=== PATIENT | male | born 1980 | race Two or more races ===

== ENCOUNTER 2020-08-13 13:51 | Emergency (ER) | payer SELFPAY ==
[2020-08-13 14:06] VITALS: BP 121/73; PULSE 85; RESP 16; TEMP 37.1; O2SAT 97; BMI 24.3
--- NOTE | 2020-08-13 15:00 | ED.SKABFB ---
HPI - Skin/Abscess/Foreign Bdy General Chief complaint: Skin/Abscess/Foreign Body Stated complaint: SKIN INFECTION Time Seen by Provider: 08/13/20 14:49 Source: patient Mode of arrival: ambulatory History of Present Illness HPI narrative: 39-year-old male with past medical history of IVDA presenting to the ED complaining of bilateral AC abscesses/infection x2 days s/p IV drug abuse. Reports left arm with redness worsening today, attempted to drain yesterday with some pus drainage expressed. Denies fever, chills, injury to other area MD complaint: abscess/boil Related Data Previous Rx's Medication Instructions Recorded cephalexin 500 mg PO QID 7 Days #28 cap 08/13/20 doxycycline hyclate 100 mg PO BID 7 Days #14 cap 08/13/20 Allergies Allergy/AdvReac Type Severity Reaction Status Date / Time No Known Allergies Allergy Verified 08/13/20 14:09 Review of Systems Review of Systems: Constitutional: No Fever, No Chills Musculoskeletal: No joint pain, No Myalgias, No Joint Swelling Skin: +abscess, +erythema, +swelling Neuro: No Numbness, No Paresthesias Yes all other systems are reviewed and are negative [facility] Past Medical History Attestation statement: The following information was validated with the patient. Medical History (Updated 08/13/20 @ 16:15 by NICOLASA Hernández) Drug abuse Social History Social History Advance Directives: No Advance Directives Information Provided: No Physical Exam Vital Signs: Vital Signs: Last Vital Signs Temp 98.7 F 08/13/20 14:06 Pulse 85 08/13/20 14:06 Resp 16 08/13/20 14:06 BP 121/73 08/13/20 14:06 Pulse Ox 97 08/13/20 14:06 Body Mass Index 24.3 Const: General: cooperative and healthy appearing Orientation/consciousness: patient oriented x3 Limitations: no limitations HENMT: Head: Yes normal to inspection Ears: hearing grossly normal bilaterally General nose exam: Normal external nose present Face and sinus: Yes normal facial exam Eyes: General: appearance normal, both eyes and all related structures EOM: EOMs intact bilaterally Neck: Neck: Yes normal visual inspection Resp: Effort & Inspection: normal respiratory effort Cardio: Rate: regular rate Peripheral pulses: dorsalis pedis present Skin: Other: +large hard indurated abscess noted to left AC with surrounding erythema/cellulitis and warmth extending to wrist. Not circumferential. No crepitus. No fluctuance. No proximal streaking Right AC with small hard indurated abscess. No surrounding cellulitis/erythema, warmth, or fluctuance Neuro: General: patient oriented x3 Gait exam (Neuro): Normal gait present Course Course Course Narrative: -no leukocytosis. Lactic negative. Labs otherwise unremarkable Worrisome signs and symptoms and strict return precautions discussed with patient. He verbalized understanding of feel safe for discharge home to be re-evaluated in 2 days MDM - Skin/Abscess/Foreign Bdy MDM Narrative Medical decision making narrative: 39-year-old male with past medical history of IVDA presenting to the ED complaining of bilateral AC abscesses/infection x2 days s/p IV drug abuse. On exam VSS, NAD/well-appearing, physical exam as above. Concern for bilateral indurated abscesses w/ cellulitis on LUE. Low concern for severe sepsis at this time. No I&D indicated at this time. Plan: Labs, 1st dose of p.o. Doxycycline and Keflex given in the ED. Differential Diagnosis Differential diagnosis: Likely abscess of skin or subcutaneous tissue and cellulitis Medical Records Attestation: I reviewed the patient's medical records. Lab Data Attestation: I reviewed the patient's lab results. Result diagrams: 08/13/20 15:15 08/13/20 15:15 Labs: Lab Results 08/13/20 08/13/20 08/13/20 Range/Units 15:15 15:15 15:15 WBC 10.1 (4.8-10.8) X10*3/uL RBC 3.88 L (4.60-5.80) X10*6/uL Hgb 11.0 L (14.0-18.0) g/dl Hct 33.6 L (42-52) % MCV 86.6 (80-98) fL MCH 28.4 (27.0-33.0) pg MCHC 32.7 (31.0-36.0) g/dl RDW 12.9 (11.0-16.0) % Plt Count 304 (160-400) X10*3/uL MPV 8.9 L (9.4-12.4) fL Immature Gran % (Auto) 0.2 (0.0-0.4) % Neut % (Auto) 64.9 (45-73) % Lymph % (Auto) 23.9 (20-40) % [place] % (Auto) 8.5 (2-11) % Eos % (Auto) 2.1 (0-4) % Baso % (Auto) 0.4 (0-2) % Lymph # (Auto) 2.4 (1.2-4.9) X10*3/uL [place] # (Auto) 0.9 (0.1-1.2) X10*3/uL Eos # (Auto) 0.2 (0.0-0.4) X10*3/uL Baso # (Auto) 0.0 (0.0-0.2) X10*3/uL Abs Immat Gran (auto) 0.02 (0.00-0.03) X10*3/uL Absolute Neuts (auto) 6.6 (2.0-8.3) X10*3/uL Absolute Nucleated RBC 0.000 (0.0-0.012) X10*3/uL Nucleated RBC % (auto) 0.0 (0.0-0.2) /100WBC Sodium 136 (135-145) mmol/L Potassium 3.6 (3.3-5.1) mmol/L Chloride 100 (96-108) mmol/L Carbon Dioxide 26 (22-29) mmol/L Anion Gap 14 (12-20) BUN 13 (9-16) mg/dL Creatinine 0.78 (0.5-1.4) mg/dL Estim Creat Clear Calc 120.5 Estimated GFR > 60 Random Glucose 94 (60-115) mg/dL Lactic Acid 0.5 (0.5-2.0) mmol/L Calcium 8.6 (8.4-10.2) mg/dL Discharge Plan Discharge Clinical Impression: Abscess Cellulitis Qualifiers: Site of cellulitis: extremity Site of cellulitis of extremity: upper extremity Laterality: left Qualified Code(s): L03.114 - Cellulitis of left upper limb Patient Disposition: Home, Self-Care Instructions: Abscess (ED), Cellulitis (ED) Additional Instructions: Your blood work was reassuring today in the ED. You have a very infected in arm from your drug abuse. Keflex and doxycycline are antibiotics, take as prescribed If area is worsening, becoming more swollen, more red, you develop any fever return to the ED immediately You should be re-evaluated in 2 days It areas becomes soft, come to a tamez, or have any drainage return to the ED for proper drainage Prescriptions: New doxycycline hyclate 100 mg capsule 100 mg PO BID 7 Days Qty: 14 RF: 0 cephalexin 500 mg capsule 500 mg PO QID 7 Days Qty: 28 RF: 0 Referrals: Physician,Unknown [Primary Care Provider] - 2 days
[2020-08-13] MEDS: cephALEXin 500 MG CAPSULE PO (15:05)
[2020-08-13 15:24] LABS: MANUAL DIFF FLAG NO
[2020-08-13 15:27] LABS: Basophils Percent Auto 0.4 % (0-2); Eosinophils Absolute Auto 0.2 X10*3/uL (0.0-0.4); Eosinophils Percent Auto 2.1 % (0-4); Hematocrit 33.6 % (42-52); Imm Gran Abs Auto 0.02 X10*3/uL (0.00-0.03); Imm Gran Pct Auto 0.2 % (0.0-0.4); Lymphocytes Absolute Auto 2.4 X10*3/uL (1.2-4.9); Lymphocytes Percent Auto 23.9 % (20-40); Mean Corpuscular HGB Conc 32.7 g/dl (31.0-36.0); Mean Corpuscular Hemoglobin 28.4 pg (27.0-33.0); Mean Corpuscular Volume 86.6 fL (80-98); Mean Platelet Volume 8.9 fL (9.4-12.4); Monocytes Absolute Auto 0.9 X10*3/uL (0.1-1.2); Monocytes Percent Auto 8.5 % (2-11); Neutrophils Absolute Auto 6.6 X10*3/uL (2.0-8.3); Neutrophils Percent Auto 64.9 % (45-73); Platelet Count 304 X10*3/uL (160-400); Red Blood Count 3.88 X10*6/uL (4.60-5.80); Red Cell Distribution Width 12.9 % (11.0-16.0); White Blood Count 10.1 X10*3/uL (4.8-10.8)
[2020-08-13 15:45] LABS: Lactic Acid 0.5 mmol/L (0.5-2.0)
[2020-08-13 15:48] LABS: Anion Gap 14 (12-20); Blood Urea Nitrogen 13 mg/dL (9-16); Calcium 8.6 mg/dL (8.4-10.2); Carbon Dioxide 26 mmol/L (22-29); Chloride 100 mmol/L (96-108); Creatinine Clr Calc Pharmacy 120.5; Estimated Glomerular Filt Rate > 60; Glucose Random 94 mg/dL (60-115); Potassium 3.6 mmol/L (3.3-5.1); Sodium 136 mmol/L (135-145)
== END 2020-08-13 16:24 | disposition home or self-care (01) ==
PROVIDERS: Physician Assistant; Emergency Provider Emergency Medicine
DX: L02.414 Cutaneous abscess of left upper limb (principal); L03.114 Cellulitis of left upper limb; F19.10 Other psychoactive substance abuse, uncomplicated
CPT/HCPCS: 36415; 80048; 83605; 85025; 87040; 99283

== ENCOUNTER 2020-10-31 11:04 | Emergency (ER) | payer MEDICAID, SELFPAY ==
--- NOTE | ~2020-10-31 | XR_ITS ---
EXAMINATION: XR HAND, RIGHT CLINICAL INFORMATION: Redness. Congestion osteomyelitis of the thumb COMPARISON: None TECHNIQUE: PA, lateral, and oblique views of the right hand. FINDINGS: The bones and soft tissues are normal. No fracture. Alignment is anatomic. Joint spaces are maintained. No erosions or soft tissue calcifications. XR/XR hand RT 2V IMPRESSION: Normal right hand.
[2020-10-31 11:28] VITALS: BP 138/80; PULSE 72; RESP 17; TEMP 36.8; O2SAT 97; BMI 23.6
--- NOTE | 2020-10-31 12:10 | ED_ITS ---
HPI - Extremity Problem General Chief complaint: Extremity Injury, Upper Stated complaint: thumb injury Time Seen by Provider: 10/31/20 11:39 Source: patient Mode of arrival: ambulatory Limitations: no limitations History of Present Illness HPI Narrative: Patient presents to ED for right thumb pain patient states he was cutting near the cuticle days ago and now finger swollen, red, and painful. Patient denies any blunt trauma to the thumb. Patient denies IV drug use throughout the finger. Related Data Previous Rx's Medication Instructions Recorded cephalexin 500 mg PO QID 7 Days #28 cap 08/13/20 doxycycline hyclate 100 mg PO BID 7 Days #14 cap 08/13/20 cephalexin 500 mg PO Q6H 7 Days #28 cap 10/31/20 doxycycline hyclate 100 mg PO BID #14 tab 10/31/20 naproxen 500 mg PO BID PRN #20 tab 10/31/20 Allergies Allergy/AdvReac Type Severity Reaction Status Date / Time No Known Allergies Allergy Verified 08/13/20 14:09 Review of Systems Review of Systems: Yes all other systems are reviewed and are negative Constitutional: Constitutional: Reports as per HPI and Reports no additional constitutional complaints Eyes: Eyes: Reports as per HPI and Reports no additional eye complaints ENT: Reports system reviewed and no additional complaints, except as documented and Reports as per HPI Cardiovascular: Cardiovascular: Reports as per HPI and Reports no additional cardiovascular complaints Respiratory: Respiratory: Reports as per HPI and Reports no additional respiratory complaints Gastrointestinal: Gastrointestinal: Reports as per HPI and Reports no additional gastrointestinal complaints Genitourinary: Genitourinary: Reports no additional male genitourinary complaints and Reports as per HPI Musculoskeletal: Musculoskeletal: Reports no additional musculoskeletal complaints, Reports as per HPI and Reports arthralgias Comments: Right thumb redness Neurologic: Reports system reviewed and no additional complaints, except as documented and Reports as per HPI Psychiatric: Psychiatric: Reports no additional psychiatric complaints and Reports as per HPI [facility] Past Medical History Medical History (Updated 10/31/20 @ 13:24 by NICOLASA Reyes) Drug abuse Social History Social History Advance Directives: No Advance Directives Information Provided: Yes Physical Exam Vital Signs: Vital Signs: Last Vital Signs Temp 98.2 F 10/31/20 11:28 Pulse 90 10/31/20 13:28 Resp 18 10/31/20 13:28 BP 122/74 10/31/20 13:28 Pulse Ox 98 10/31/20 13:28 Body Mass Index 23.6 Const: General: cooperative, healthy appearing, comfortable, no acute distress, well developed and alert; No awake Orientation/consciousness: patient oriented x3 HENMT: Head: Yes normal to inspection, Yes No palpable skull fracture present, Yes normocephalic, Yes atraumatic and No abrasion Eyes: General: appearance normal, both eyes and all related structures Neck: Neck: Yes normal visual inspection, Yes full ROM, Yes no lymphadenopathy, Yes no meningeal signs, Yes trachea midline, Yes supple and No tender Chest: Chest palpation & inspection: normal inspection of the chest and normal palpation of entire chest wall Resp: Effort & Inspection: normal respiratory effort and able to speak in complete sentences Cardio: Jugular venous distension: no JVD Heart sounds: S1 normal heart sound present and S2 normal heart sound present GI: Inspection: Yes normal to inspection and No abdominal wall ecchymosis Palpation (GI): Soft to palpation, not firm, nontender, no guarding and not rigid : General: No CVA tenderness and Yes no CVA tenderness Back/Spine/Pelvis: Back: no CVA tenderness, No CVA tenderness and No back tenderness Skin: Other: Right thumb cellulitis General skin exam: no rashes or lesions noted and elasticity normal Neuro: General: patient oriented x3, no meningeal signs and CN's II-XI intact bilaterally Cranial nerves: Yes CN's II-XII intact bilaterally Extrem: Hand/finger images: 1. Redness swelling on skin below nail dorsal aspect from with green fluctuance may be early paronychia. Cellulitis versus parynochia Psych: Appearance: grossly normal, well kempt and not disheveled Course Course Course Narrative: Will send patient x-ray to rule out osteomyelitis for Reevaluation(s) Reevaluation #1: Most likely will drain to see there is any pus from area of fluctuance possible paronychia. If the patient be discharged with Keflex and doxycycline. Reevaluation #2: X-ray negative for osteomyelitis. Digital block was done on right thumb with 1% lidocaine 6 mL was used. Wounds clean with sterile saline and Betadine. Size 15 blade was used to make incision on side of paronychia and there was yellow-green pus discharge. Wound culture was sent. Patient will be discharged with antibiotics. Patient up-to-date with tetanus MDM - Extremity (Nontraumatic) MDM Narrative Medical decision making narrative: Paronychia cellulitis Discharge Plan Discharge Clinical Impression: Paronychia, Cellulitis Patient Disposition: Home, Self-Care Instructions: Paronychia (ED), Cellulitis (ED) Additional Instructions: Return to the ED immediately for worsening redness, increased swelling, inabili ty to move finger, fever, chills, or any other concerning symptoms. Please follow-up with your PCP. Return to the ED in 2 days for wound re-evaluation Prescriptions: New cephalexin 500 mg capsule 500 mg PO Q6H 7 Days Qty: 28 RF: 0 doxycycline hyclate 100 mg tablet 100 mg PO BID Qty: 14 RF: 0 naproxen 500 mg tablet 500 mg PO BID PRN (Reason: pain) Qty: 20 RF: 0 No Action doxycycline hyclate 100 mg capsule 100 mg PO BID 7 Days Qty: 14 RF: 0 cephalexin 500 mg capsule 500 mg PO QID 7 Days Qty: 28 RF: 0 Interventions: ED Discharge Assessment Last Done: 10/31/20 13:30 Discharge Date/Time: 10/31/20 13:32 Print Language: Sami
[2020-10-31] MEDS: Lidocaine HCl 1 % MPF 5 ML VIAL INFILTRATI (12:15)
[2020-10-31] MEDS: Lidocaine HCl 1 % MPF 5 ML VIAL EPIDURAL (12:15)
[2020-10-31 13:28] VITALS: BP 122/74; PULSE 90; RESP 18; O2SAT 98
== END 2020-10-31 13:32 | disposition home or self-care (01) ==
PROVIDERS: Emergency Provider Emergency Medicine
DX: L03.011 Cellulitis of right finger (principal); M79.644 Pain in right finger(s)
CPT/HCPCS: 10060; 73120; 87071; 87077; 87186; 87205; 99283; 99284

== ENCOUNTER 2020-11-07 10:14 | Emergency (ER) | payer MEDICAID, SELFPAY ==
[2020-11-07 10:26] VITALS: BP 142/80; PULSE 56; RESP 18; TEMP 36.8; O2SAT 98; BMI 23.6
--- NOTE | 2020-11-07 10:37 | ED.OVERDOSE ---
HPI - Overdose General Chief Complaint: ETOH/Substance Use Stated Complaint: NARCOTIC USE Time Seen by Provider: 11/07/20 10:37 Source: patient and EMS Mode of arrival: EMS Limitations: no limitations History of Present Illness HPI Narrative: 40 y/o male with history of homelessness, IV heroin use presenting to the ER via EMS with lethargy after he was [place] unresponsive by bystanders [place] a [place]. Patient reports he was sleeping and apparently he could not be woken up. On EMS arrival he was aroused and not given Narcan. He states his last use of heroin was a day or two ago. He denies use today. He has a history of overdose in the past. He has been on Suboxone in the past. He wants to get clean. He is depressed but denies SI. Denies intentional OD. Wants to be left alone. complaint: accidental overdose Intent: unwilling to say Associated symptoms: depression Treatments Prior to Arrival: none Related Data Previous Rx's Medication Instructions Recorded cephalexin 500 mg PO QID 7 Days #28 cap 08/13/20 doxycycline hyclate 100 mg PO BID 7 Days #14 cap 08/13/20 cephalexin 500 mg PO Q6H 7 Days #28 cap 10/31/20 doxycycline hyclate 100 mg PO BID #14 tab 10/31/20 naproxen 500 mg PO BID PRN #20 tab 10/31/20 Allergies Allergy/AdvReac Type Severity Reaction Status Date / Time No Known Allergies Allergy Verified 08/13/20 14:09 Review of Systems Review of Systems: Constitutional: No Fever, No Chills Cardiovascular: No Chest Pain, No SOB, No Respiratory: No Cough, No Sputum Gastrointestinal: No Nausea, No Vomiting, No Diarrhea, No abdominal Pain Skin: +Skin Lesions, No rash Neuro: No Weakness, No Numbness, No Dizziness, No Headache Psych: No Anxiety/Panic, + Depression, No SI Heme/Lymph: No Bruising PMFSH Past Medical History Attestation statement: The following information was validated with the patient. Medical History Drug abuse Social History Social History Advance Directives: No Advance Directives Information Provided: No Physical Exam Vital Signs: Vital Signs: Last Vital Signs Temp 98.2 F 11/07/20 10:26 Pulse 56 11/07/20 10:26 Resp 18 11/07/20 10:26 BP 142/80 H 11/07/20 10:26 Pulse Ox 98 11/07/20 10:26 Body Mass Index 23.6 Appearance: middle aged male sleeping on the stretcher. No acute distress. HEENT: normal inspection CVS: Normal heart rate and rhythm. Pulses normal. Respiratory: No respiratory distress. RR normal. CTAB. Skin: Skin warm and dry. Normal skin color. Normal skin turgor. No rashes. Extremities: upper extremities with multiple track stone, scabbing, no erythema or tenderness, no abscesses. Neuro/psych: Lethargic but easily arouses to voice. Oriented X 3. Answers all questions appropriately, flat affect. Course Course Course Narrative: 40 y/o female with history of IVDA presenting with lethargy. Probable substance abuse related although he denies. Did NOT require Narcan and is appropriate on arrival. He is wanting detox and rehab. He is not exhibiting any symptoms of withdrawal at this time. Will monitor closely. strength and conditioning coach to see. Reevaluation(s) Reevaluation #1: Patient is requesting detox - facility in [place] has been called. Labs and EKG ordered (cocaine use), hopeful for placement today. Reevaluation #2: WBC 12.3. Afebrile without signs of systemic infection. Sodium 146 with BUN/Cr 23/0.75, Ca++ 10.4. Likely slightly dehydrated. Tolerating PO and PO fluids are being encouraged. Awaiting UA and Utox. Reevaluation #3: Patient is currently doing intake for [facility]. Stable for d/c to rehab for detox. MDM - Overdose Lab Data Attestation: I reviewed the patient's lab results. Result diagrams: 11/07/20 11:54 11/07/20 11:54 Labs: Lab Results 11/07/20 11/07/20 11/07/20 Range/Units 11:54 11:54 11:54 WBC 12.3 H (4.8-10.8) X10*3/uL RBC 5.56 D (4.60-5.80) X10*6/uL Hgb 15.7 D (14.0-18.0) g/dl Hct 47.6 D (42-52) % MCV 85.6 (80-98) fL MCH 28.2 (27.0-33.0) pg MCHC 33.0 (31.0-36.0) g/dl RDW 13.2 (11.0-16.0) % Plt Count 407 H D (160-400) X10*3/uL MPV 8.7 L (9.4-12.4) fL Immature Gran % (Auto) 0.3 (0.0-0.4) % Neut % (Auto) 84.6 H (45-73) % Lymph % (Auto) 10.0 L (20-40) % [place] % (Auto) 4.9 (2-11) % Eos % (Auto) 0.0 (0-4) % Baso % (Auto) 0.2 (0-2) % Lymph # (Auto) 1.2 (1.2-4.9) X10*3/uL [place] # (Auto) 0.6 (0.1-1.2) X10*3/uL Eos # (Auto) 0.0 (0.0-0.4) X10*3/uL Baso # (Auto) 0.0 (0.0-0.2) X10*3/uL Abs Immat Gran (auto) 0.04 H (0.00-0.03) X10*3/uL Absolute Neuts (auto) 10.4 H (2.0-8.3) X10*3/uL Absolute Nucleated RBC 0.000 (0.0-0.012) X10*3/uL Nucleated RBC % (auto) 0.0 (0.0-0.2) /100WBC Sodium 146 H (135-145) mmol/L Potassium 3.4 (3.3-5.1) mmol/L Chloride 104 (96-108) mmol/L Carbon Dioxide 28 (22-29) mmol/L Anion Gap 17 (12-20) BUN 23 H D (9-16) mg/dL Creatinine 0.75 (0.5-1.4) mg/dL Estim Creat Clear Calc 128.3 Estimated GFR > 60 Random Glucose 93 (60-115) mg/dL Calcium 10.4 H D (8.4-10.2) mg/dL Magnesium 2.5 (1.6-2.6) mg/dL Total Bilirubin 0.8 (0.0-1.0) mg/dL Direct Bilirubin 0.4 (0.0-0.5) mg/dL AST 17 (5-37) U/L ALT 13 (0-40) U/L Alkaline Phosphatase 91 (39-117) U/L Total Protein 8.7 H (6.5-8.0) g/dL Albumin 4.5 (3.5-5.0) g/dL Ethyl Alcohol < 10 mg/dL ECG Data Attestation: I personally reviewed and interpreted this ECG as follows: ECG interpretation date: 11/07/20 ECG interpretation time: 14:52 Interpretation: sinus rhythm, HR 63 bpm, normal W[place] interval, normal QTC, artifact present. No ST segment or elevations Critical Care Time Critical Care Time Critical Care Time: No Discharge Plan Discharge Clinical Impression: Heroin addiction Patient Disposition: Xfer to Respite Facility Transfer Details: [facility] Instructions: Opioid Use Disorder (ED) Additional Instructions: DO NOT USE HEROIN - IT CAN KILL YOU Go right to detox from the ER Prescriptions: No Action cephalexin 500 mg capsule 500 mg PO Q6H 7 Days Qty: 28 RF: 0 doxycycline hyclate 100 mg tablet 100 mg PO BID Qty: 14 RF: 0 naproxen 500 mg tablet 500 mg PO BID PRN (Reason: pain) Qty: 20 RF: 0 doxycycline hyclate 100 mg capsule 100 mg PO BID 7 Days Qty: 14 RF: 0 cephalexin 500 mg capsule 500 mg PO QID 7 Days Qty: 28 RF: 0
--- NOTE | 2020-11-07 10:53 | ECG_ITS ---
Test Reason : ETOH Blood Pressure : / mmHG Vent. Rate : 063 BPM Atrial Rate : 063 BPM P-R Int : 130 ms QRS Dur : 080 ms QT Int : 456 ms P-R-T Axes : 080 079 086 degrees QTc Int : 466 ms Sinus rhythm with Premature supraventricular complexes Septal infarct , age undetermined Abnormal ECG No previous ECGs available Referred By: Lakeshia Galdamez Electronically Signed By:LILLIE BURDEN MD
[2020-11-07 11:59] LABS: MANUAL DIFF FLAG NO
[2020-11-07 12:02] LABS: Basophils Percent Auto 0.2 % (0-2); Hematocrit 47.6 % (42-52); Hemoglobin 15.7 g/dl (14.0-18.0); Imm Gran Abs Auto 0.04 X10*3/uL (0.00-0.03); Imm Gran Pct Auto 0.3 % (0.0-0.4); Lymphocytes Absolute Auto 1.2 X10*3/uL (1.2-4.9); Mean Corpuscular Hemoglobin 28.2 pg (27.0-33.0); Mean Corpuscular Volume 85.6 fL (80-98); Mean Platelet Volume 8.7 fL (9.4-12.4); Monocytes Absolute Auto 0.6 X10*3/uL (0.1-1.2); Monocytes Percent Auto 4.9 % (2-11); Neutrophils Absolute Auto 10.4 X10*3/uL (2.0-8.3); Neutrophils Percent Auto 84.6 % (45-73); Platelet Count 407 X10*3/uL (160-400); Red Blood Count 5.56 X10*6/uL (4.60-5.80); Red Cell Distribution Width 13.2 % (11.0-16.0); White Blood Count 12.3 X10*3/uL (4.8-10.8)
[2020-11-07 12:39] LABS: Alanine Aminotransferase 13 U/L (0-40); Albumin Level 4.5 g/dL (3.5-5.0); Alkaline Phosphatase 91 U/L (39-117); Anion Gap 17 (12-20); Aspartate Amino Transferase 17 U/L (5-37); Bilirubin Direct 0.4 mg/dL (0.0-0.5); Bilirubin Total 0.8 mg/dL (0.0-1.0); Blood Urea Nitrogen 23 mg/dL (9-16); Calcium 10.4 mg/dL (8.4-10.2); Carbon Dioxide 28 mmol/L (22-29); Chloride 104 mmol/L (96-108); Creatinine Clr Calc Pharmacy 128.3; Estimated Glomerular Filt Rate > 60; Ethanol < 10 mg/dL; Glucose Random 93 mg/dL (60-115); Magnesium 2.5 mg/dL (1.6-2.6); Potassium 3.4 mmol/L (3.3-5.1); Sodium 146 mmol/L (135-145); Total Protein 8.7 g/dL (6.5-8.0)
--- NOTE | 2020-11-07 14:34 | MHC.RECOVSUP ---
Recovery Support note: Patient is a 40 year old Egyptian speaking male who presented to [facility] seeking detox, reporting recent heroin use. Patient does not have health insurance. Patient was referred to [facility] however they are now reporting that they do not have a male bed. This web content writer will continue the bedsearch for patient.
--- NOTE | 2020-11-07 16:11 | PC.NURSE ---
assumed care of pt. pt sleeping, wakes to voice. respirations easy, n/l. skin w/d. will continue to monitor pt. Pt in NAD at this time.
--- NOTE | 2020-11-07 17:43 | PC.NURSE ---
PT TO WR AWAITING FOR [facility] RECOVERY TO ANSWER PHONE. BELONGINGS TO PT. PT AMBULATES WITH STEADY, EVEN GAIT TO WR. PT LEFT ED IN NAD.
== END 2020-11-07 17:46 ==
PROVIDERS: Physician Assistant; Emergency Provider Emergency Medicine
DX: T40.1X1A Poisoning by heroin, accidental (unintentional), initial encounter (principal); Y92.9 Unspecified place or not applicable; F11.10 Opioid abuse, uncomplicated; Z71.51 Drug abuse counseling and surveillance of drug abuser
CPT/HCPCS: 36415; 80048; 80076; 80320; 83735; 85025; 93005; 99283

== ENCOUNTER 2021-10-26 23:25 | Emergency (ER) | payer OTHER, SELFPAY ==
--- NOTE | 2021-10-26 23:32 | ED_ITS ---
HPI - Alcohol General Chief Complaint: ETOH/Substance Use Stated Complaint: drug use Source: patient and EMS Mode of arrival: EMS Limitations: no limitations History of Present Illness HPI narrative: 41-year-old male presents via EMS for alcohol intoxication. Was found trying to get into somebody else's apartment. Patient stated that he was drunk and high and mistook the apartment door. MD complaint: alcohol intoxication Last drink: Just prior to admission Chronic alcohol use: Yes Previous visits for alcohol intoxication: Yes Recent trauma: No Associated symptoms: denies other symptoms Related Data Previous Rx's Medication Instructions Recorded cephalexin 500 mg capsule 500 mg PO QID 7 Days #28 cap 08/13/20 doxycycline hyclate 100 mg capsule 100 mg PO BID 7 Days #14 cap 08/13/20 cephalexin 500 mg capsule 500 mg PO Q6H 7 Days #28 cap 10/31/20 doxycycline hyclate 100 mg tablet 100 mg PO BID #14 tab 10/31/20 naproxen 500 mg tablet 500 mg PO BID PRN #20 tab 10/31/20 Allergies Allergy/AdvReac Type Severity Reaction Status Date / Time No Known Allergies Allergy Verified 08/13/20 14:09 Review of Systems Review of Systems: Constitutional: No Fever, No Chills ENT/Mouth: No sore throat, No Rhinorrhea Eyes: No Eye Pain, No Swelling, No Redness Cardiovascular: No Chest Pain, No SOB Respiratory: No Cough, No Sputum Gastrointestinal: No Nausea, No Vomiting, No Diarrhea, No abdominal Pain Genitourinary: No Dysuria, No Hematuria Musculoskeletal: No joint pain, No Myalgias, No Joint Swelling Skin: Multiple track stone, No Skin Lesions, No rash Neuro: No Weakness, No Numbness, No Loss of Consciousness, No Dizziness, No Headache Psych: Positive alcohol and heroin intoxication, No Anxiety, No Depression, No SI/HI/AH/VH Heme/Lymph: No Bruising, No Bleeding,No Lymphadenopathy Endocrine: No Polyuria, No Polydipsia Yes all other systems are reviewed and are negative [facility] Past Medical History Attestation statement: The following information was validated with the patient. Source: old records reviewed Medical History Drug abuse Social History Social History Alcohol intake: current Patient Tobacco Use Status: Never used Tobacco Use of substances other than those prescribed or required for medical reasons: Yes Substance Use Type: Heroin Substance Use Frequency: Chronic Longstanding Advance Directives: No Physical Exam ED Vital Signs: Vital Signs - 24 hr 10/26/21 23:37 10/26/21 23:42 Temperature 98.6 F 98.6 F Pulse Rate 110 H 110 H Respiratory Rate 15 18 Blood Pressure 123/56 L 123/56 L Pulse Oximetry 94 94 BMI result Body Mass Index 22.6 Appearance: Alert. Oriented X3. No acute distress. Eyes: Pupils equal, round and reactive to light. EOMI. No nystagmus. Sclerae nonicteric. ENT: Pharynx normal. Moist mucous membranes. Neck: Normal inspection. Neck supple. CVS: Normal heart rate and rhythm. Pulses normal. Respiratory: No respiratory distress. Breath sounds normal. Abdomen: Soft and nontender. Skin: Multiple fresh track stone. Skin warm and dry. Normal skin color. Normal skin turgor. Extremities: No lower extremity edema. Gait well-balanced well coordinated. Neuro: No motor deficit. No sensory deficit. Cranial nerves 2-12 intact. Course Course Course Narrative: 41-year-old male presents via EMS for alcohol and heroin use. Patient was found trying to get into an apartment that was not his, EMS states that he was not breaking and he just went to the wrong door. Patient is calm and cooperative. Answering questions politely and appropriately, alert oriented x4, vital signs are stable and within normal limits. Patient denies suicidal and homicidal ideation. Does not report any medical complaints. Does have some fresh track stone and wounds to his arms. Last tetanus vaccine unknown, will update today. Patient declines detox. Plan of care is to discharge home. Patient did not require Narcan. Patient verbalized understanding of and agrees to plan of care to discharge home. Verbalized understanding of signs and symptoms indicating need for emergent intervention MDM - Alcohol MDM Narrative Medical decision making narrative: Opioid use disorder Differential Diagnosis Differential diagnosis: Likely alcohol dependence Medical Records Attestation: I reviewed the patient's medical records. Discharge Plan Discharge Clinical Impression: Opioid use disorder, Alcohol use Patient Disposition: Home, Self-Care Instructions: Narcotic Use Disorder (ED), Opioid Use Disorder (ED) Additional Instructions: Please consider detox. We updated your Tdap vaccine today. Thank you for choosing this emergency department for evaluation. Please follow-up with primary care physician as needed. Return to the emergency department for any new, concerning, or worsening symptoms. Prescriptions: No Action cephalexin 500 mg capsule 500 mg PO Q6H 7 Days Qty: 28 0RF doxycycline hyclate 100 mg tablet 100 mg PO BID Qty: 14 0RF naproxen 500 mg tablet 500 mg PO BID PRN (Reason: pain) Qty: 20 0RF doxycycline hyclate 100 mg capsule 100 mg PO BID 7 Days Qty: 14 0RF cephalexin 500 mg capsule 500 mg PO QID 7 Days Qty: 28 0RF
[2021-10-26 23:36] VITALS: BP 148/80; PULSE 87
[2021-10-26 23:37] VITALS: BP 123/56; PULSE 110; RESP 15; TEMP 37; O2SAT 94; BMI 22.6
[2021-10-26 23:42] VITALS: BP 123/56; PULSE 110; RESP 18; TEMP 37; O2SAT 94
[2021-10-26] MEDS: Diphth,Pertus(ACell),Tet Adult 0.5 ML SYRINGE IM (23:51)
== END 2021-10-27 00:59 | disposition home or self-care (01) ==
LOC: HO.ED 23:47
PROVIDERS: Emergency Provider Internal Medicine
DX: S40.812A Abrasion of left upper arm, initial encounter (principal); S40.811A Abrasion of right upper arm, initial encounter; Y28.9XXA Contact with unspecified sharp object, undetermined intent, initial encounter; Y93.9 Activity, unspecified; Y92.9 Unspecified place or not applicable; Y99.9 Unspecified external cause status; F11.10 Opioid abuse, uncomplicated; F10.129 Alcohol abuse with intoxication, unspecified; Y90.9 Presence of alcohol in blood, level not specified; Z71.51 Drug abuse counseling and surveillance of drug abuser; Z79.899 Other long term (current) drug therapy
CPT/HCPCS: 90471; 90715; 99284

== ENCOUNTER 2023-04-10 06:14 | Emergency (ER) | payer OTHER, SELFPAY ==
[2023-04-10 06:18] VITALS: BP 113/54; PULSE 98; RESP 20; TEMP 36.6; O2SAT 96; BMI 24.4
--- NOTE | 2023-04-10 06:36 | ED_ITS ---
HPI - Psych General Chief Complaint: Psychiatric Symptoms Stated Complaint: Crisis Time Seen by Provider: 04/10/23 06:24 Source: patient Mode of arrival: ambulatory Limitations: no limitations History of Present Illness HPI Narrative: Patient is a 42-year-old male with history of drug and alcohol use, PTSD, depression, anxiety presenting to the emergency department complaining of suicidal and homicidal ideation after ?going on a sanchez.? Patient admits to using heroin and cocaine recently after being clean for 6 months. Patient initially reported thoughts of hurting himself and others to nursing on arrival. Patient now stating that he no longer feels this way and that he wishes to leave. Patient states that he just wants to get help with detox for his drug use. He is denying current SI, HI, auditory or visual hallucinations. Denies any physical complaints. MD complaint: suicidal ideation, homicidal ideation and substance abuse Onset (ago): hour(s) Duration: intermittent History of same: Yes Relieving factors: none Exacerbating factors: drug use Context: recent drug abuse Associated psychiatric symptoms: suicidal ideation and homicidal ideation Associated symptoms: denies other symptoms Treatments prior to arrival: none If self harm: admits thoughts of self harm Details of plan: denies plan Related Data Previous Rx's Medication Instructions Recorded cephalexin 500 mg capsule 500 mg PO QID 7 days #28 caps 08/13/20 doxycycline hyclate 100 mg capsule 100 mg PO BID 7 days #14 caps 08/13/20 cephalexin 500 mg capsule 500 mg PO Q6H 7 days #28 caps 10/31/20 doxycycline hyclate 100 mg tablet 100 mg PO BID #14 tabs 10/31/20 naproxen 500 mg tablet 500 mg PO BID PRN pain #20 tabs 10/31/20 Allergies Allergy/AdvReac Type Severity Reaction Status Date / Time No Known Allergies Allergy Verified 04/10/23 06:21 Review of Systems 2 Review of Systems: As per HPI. Yes all other systems are reviewed and are negative Constitutional: Constitutional: Reports as per HPI [facility] Past Medical History Medical History Drug abuse Social History Social History (System 03/16/22 @ 11:05 by Nelly Albert) Alcohol intake: current Patient Tobacco Use Status: Never used Tobacco Substance Use Type: Heroin Advance Directives: No Physical Exam 2 Vital Signs: Vital Signs: Last Vital Signs Temp 97.8 F 04/10/23 06:18 Pulse 98 04/10/23 06:18 Resp 20 04/10/23 06:18 BP 113/54 L 04/10/23 06:18 Pulse Ox 96 04/10/23 06:18 O2 Del Method Room Air 04/10/23 06:18 BMI result Body Mass Index 24.4 Vital signs have been reviewed and appear to be correct. Blood pressure normal. Heart rate normal. Respiratory rate normal. Temperature normal. Oxygen saturation normal. Const: General: cooperative, healthy appearing and no acute distress O rientation/consciousness: oriented to person, oriented to place, oriented to time and patient oriented x3 Limitations: no limitations HEENT: Head: Yes normocephalic and Yes atraumatic Ears: external ears normal General nose exam: Normal external nose present Face and sinus: Yes face symmetric Mouth: oropharynx normal and moist mucous membranes Throat: Yes uvula midline Eyes: Pupils: Equal, round and reactive pupils present Neck: Neck: Yes normal visual inspection and Yes supple Resp: Effort & Inspection: normal respiratory effort and able to speak in complete sentences Auscultation: clear to auscultation bilaterally Cardio: Rate: regular rate Rhythm: regular rhythm Heart sounds: S1 normal heart sound present and S2 normal heart sound present GI: Palpation (GI): Soft to palpation and nontender Auscultation: n ormoactive bowel sounds : General: Yes no CVA tenderness Back/Spine/Pelvis: Back: no CVA tenderness Skin: General skin exam: elasticity normal and turgor normal Neuro: General: oriented to person, oriented to place, oriented to time, patient oriented x3, moves all extremities, no focal motor deficits and CN's II- XI intact bilaterally Cranial nerves: Yes Equal, round and reactive pupils present Cognition (Neuro): normal cognition Extrem: General: Yes full ROM, Yes no pedal edema and Yes no calf tenderness Psych: Appearance: grossly normal Mental Status: mental status grossly normal Speech and movement: Normal speech and movement present Affect: n ormal affect Attitude: Guarded attititude/behavior present Thought process: Normal thought process present Thought content: Suicidality present (admitted to RN, currently denies), Homicidality present (admitted to RN, currently denies) and no hallucinations Insight: Limited insight present (Psych) Judgement: Limited judgement present (Psych) Course Reevaluation(s) Reevaluation #1: Evaluated by care team/susanter 18, currently there are no detox beds available. He is provided outpatient resources and encouraged to follow up with his doctor for detox bed. He is agreeable with this plan of care. Continues to deny SI/HI. He is calm and cooperative. Stable for discharge. Time: 16:31 Medications Administered Discontinued Medications Generic Name Dose Route Start Last Admin Trade Name Kimberly PRN Reason Stop Dose Admin Lorazepam 2 mg 04/10/23 07:05 04/10/23 07:32 Lorazepam 1 Mg Tablet PO 04/10/23 07:06 2 mg ONCE ONE Administration Medical Decision Making Medical Decision Making MDM Narrative: Patient is a 42-year-old male with history of drug and alcohol use, PTSD, depression, anxiety presenting to the emergency department complaining of suicidal and homicidal ideation after ?going on a sanchez.? On exam patient is awake, A+Ox3, VS WNL, afebrile, normal neurological exam without focal deficits, physical exam findings as above. Given reported symptoms and physical exam findings, initial differential includes depression, anxiety, suicidal ideation, opioid use disorder. Discussed with patient that because he endorsed suicidal and homicidal ideation, he needs to remain in the ED until he has a CARE team evaluation. Plan to clear medically for CARE team eval. Labs notable for mild anemia, similar to prior levels, no leukocytosis, no significant electrolyte abnormalities. Tylenol, ethanol, and salicylates negative. Awaiting urine. 10:[address] Ac who agrees that since patient is adamantly denying suicidal or homicidal ideation at this time, and is requesting only assistance with detox, CARE team evaluation is unnecessary at this time. Will place order for recovery team to see pt. Patient placed on physician observation pending recovery team eval. Lab Data 04/10/23 07:25 04/10/23 07:25 Labs: Lab Results 04/10/23 04/10/23 04/10/23 Range/Units 07:25 07:26 14:11 WBC 7.0 (4.8-10.8) X10*3/uL RBC 3.92 L (4.60-5.80) X10*6/uL Hgb 11.0 L (14.0-18.0) g/dl Hct 33.9 L (42.0-52.0) % MCV 86.5 (80.0-98.0) fL MCH 28.1 (27.0-33.0) pg MCHC 32.4 (31.0-36.0) g/dl RDW 12.8 (11.0-16.0) % Plt Count 275 (160-400) X10*3/uL MPV 9.3 L (9.4-12.4) fL Immature Gran % (Auto) 0.1 (0.0-0.4) % Neut % (Auto) 67.7 (45-73) % Lymph % (Auto) 16.4 L (20-40) % Ross % (Auto) 9.3 (2-11) % Eos % (Auto) 5.8 H (0-4) % Baso % (Auto) 0.7 (0-2) % Lymph # (Auto) 1.2 (1.2-4.9) X10*3/uL Ross # (Auto) 0.7 (0.1-1.2) X10*3/uL Eos # (Auto) 0.4 (0.0-0.4) X10*3/uL Baso # (Auto) 0.1 (0.0-0.2) X10*3/uL Abs Immat Gran (auto) 0.01 (0.00-0.03) X10*3/uL Absolute Neuts (auto) 4.7 (2.0-8.3) x10*3/uL Absolute Nucleated RBC 0.000 (0.0-0.012) X10*3/uL Nucleated RBC % (auto) 0.0 (0.0-0.2) /100WBC Sodium 135 (135-145) mmol/L Potassium 3.5 (3.3-5.1) mmol/L Chloride 104 (96-108) mmol/L Carbon Dioxide 19 L (22-29) mmol/L Anion Gap 16 (12-20) BUN 10 (9-16) mg/dL Creatinine 0.77 (0.5-1.4) mg/dL Estim Creat Clear Calc 122.4 Estimated GFR > 60 Random Glucose 98 (60-115) mg/dL Calcium 9.6 D (8.4-10.2) mg/dL Total Bilirubin 0.5 (0.0-1.0) mg/dL AST 35 (5-37) U/L ALT 13 (0-40) U/L Alkaline Phosphatase 77 (39-117) U/L Total Protein 7.4 (6.5-8.0) g/dL Albumin 3.9 (3.5-5.0) g/dL Urine Color Dark Yellow Urine Appearance Clear Urine pH 5.5 (5.0-9.0) Ur Specific [place] 1.025 (1.005-1.025) Urine Protein Trace (Neg-Trace) mg/dL Urine Glucose (UA) Negative (Negative) mg/dL Urine Ketones 15 (Negative) mg/dL Urine Blood Small (1+) H (Negative) Urine Nitrite Negative (Negative) Ur Leukocyte Esterase Negative (Negative) Urine RBC 11-20 H (0-2) /HPF Urine WBC 0-5 (0-5) /HPF Ur Squamous Epith Cells 0-2 (0-2) /HPF Urine Bacteria None Seen (None Seen) Hyaline Casts 0-2 (0-2) /LPF Salicylates < 5.0 L (15-30) mg/dL Urine Opiates Screen POSITIVE H (Not Detect) Urine Fentanyl Screen POSITIVE H (Not Detect) Acetaminophen < 17 (<30) mcg/mL Ur Barbiturates Screen Not Detected (Not Detect) Ur Phencyclidine Scrn Not Detected (Not Detect) Ur Amphetamines Screen Not Detected (Not Detect) U Benzodiazepines Scrn Not Detected (Not Detect) Urine Cocaine Screen POSITIVE H (Not Detect) U Marijuana (THC) Screen POSITIVE H (Not Detect) Ethyl Alcohol < 10 mg/dL COVID-19 ([facility]) Negative (Negative) COVID-19 Clin Com See Note Discharge Plan Discharge Clinical Impression: Depression Patient Disposition: Home, Self-Care Additional Instructions: Please follow-up with [facility] as instructed by recovery team for assistance with detox. You may return back to emergency department any new or worsening symptoms or concerns. Prescriptions: No Action cephalexin 500 mg capsule 500 mg PO Q6H 7 Days Qty: 28 0RF doxycycline hyclate 100 mg tablet 100 mg PO BID Qty: 14 0RF naproxen 500 mg tablet 500 mg PO BID PRN (Reason: pain) Qty: 20 0RF doxycycline hyclate 100 mg capsule 100 mg PO BID 7 Days Qty: 14 0RF cephalexin 500 mg capsule 500 mg PO QID 7 Days Qty: 28 0RF Interventions: [place]-Suicide Risk Severity Scale Last Done: 04/10/23 06:24 ED Discharge Assessment Last Done: 04/10/23 16:37 Discharge Date/Time: 04/10/23 17:13
[2023-04-10 07:30] LABS: MANUAL DIFF FLAG NO
[2023-04-10] MEDS: LORazepam 1 MG TABLET 2 MG PO (07:32)
[2023-04-10 07:35] LABS: Basophils Absolute Auto 0.1 X10*3/uL (0.0-0.2); Basophils Percent Auto 0.7 % (0-2); Eosinophils Absolute Auto 0.4 X10*3/uL (0.0-0.4); Eosinophils Percent Auto 5.8 % (0-4); Hematocrit 33.9 % (42.0-52.0); Imm Gran Abs Auto 0.01 X10*3/uL (0.00-0.03); Imm Gran Pct Auto 0.1 % (0.0-0.4); Lymphocytes Absolute Auto 1.2 X10*3/uL (1.2-4.9); Lymphocytes Percent Auto 16.4 % (20-40); Mean Corpuscular HGB Conc 32.4 g/dl (31.0-36.0); Mean Corpuscular Hemoglobin 28.1 pg (27.0-33.0); Mean Corpuscular Volume 86.5 fL (80.0-98.0); Mean Platelet Volume 9.3 fL (9.4-12.4); Monocytes Absolute Auto 0.7 X10*3/uL (0.1-1.2); Monocytes Percent Auto 9.3 % (2-11); Neutrophils Absolute Auto 4.7 x10*3/uL (2.0-8.3); Neutrophils Percent Auto 67.7 % (45-73); Platelet Count 275 X10*3/uL (160-400); Red Blood Count 3.92 X10*6/uL (4.60-5.80); Red Cell Distribution Width 12.8 % (11.0-16.0)
[2023-04-10 07:44] LABS: Ethanol < 10 mg/dL
[2023-04-10 07:46] LABS: Alanine Aminotransferase 13 U/L (0-40); Albumin Level 3.9 g/dL (3.5-5.0); Alkaline Phosphatase 77 U/L (39-117); Anion Gap 16 (12-20); Aspartate Amino Transferase 35 U/L (5-37); Bilirubin Total 0.5 mg/dL (0.0-1.0); Blood Urea Nitrogen 10 mg/dL (9-16); Calcium 9.6 mg/dL (8.4-10.2); Carbon Dioxide 19 mmol/L (22-29); Chloride 104 mmol/L (96-108); Creatinine Clr Calc Pharmacy 122.4; Estimated Glomerular Filt Rate > 60; Glucose Random 98 mg/dL (60-115); Potassium 3.5 mmol/L (3.3-5.1); Sodium 135 mmol/L (135-145); Total Protein 7.4 g/dL (6.5-8.0)
[2023-04-10 07:48] LABS: Acetaminophen LAB < 17 mcg/mL (<30); Salicylate < 5.0 mg/dL (15-30)
--- NOTE | 2023-04-10 08:10 | MHC.CARE ---
attempted to check in w pt to determine his need, as it appears patient is seeking detox. He is unable to answer t/w inquires at this time, somnolent and resting.
[2023-04-10 08:11] LABS: COVID-19 Test Negative (Negative); IDNOW Serial# BCCEAD1C
--- NOTE | 2023-04-10 08:39 | PC.NURSE ---
ASSUMED CARE OF THIS PT AT 0700. AT THE TIME OF ASSUMING CARE PT IN BATHROOM CHANGING OVER INTO [facility] GOWN WITH SECURITY PRESENT. BREAKFAST OFFERED BUT HE REFUSED. MED GIVEN ORDERED. CARE TEAM STAFF ATTEMPTED TO SPEAK WITH PT BUT PT FALLING ASLEEP. PT SLEEPING AT THIS TIME. 1:1 STAFF AT HIS BEDSIDE.
--- NOTE | 2023-04-10 13:44 | MHC.RECOVSUP ---
Addendum entered by Oseas Patricia 04/10/23 16:18: ATS bedsearch exhausted. [facility] - no beds [place] - no beds [facility] - no beds [facility] - no beds (pt information sent over and can follow up from the community) [place] - no beds [facility] - no beds [place] - no beds [place] - no beds Pt to follow up from the community and resources have been provided. Original Note: met with pt in [facility] who is here for psychiatric needs and [place]. Pt informs he has been using about 1 bundle of heroin with an undisclosed amount of cocaine intravenously every day. pt has a history of 2 overdoses with the most recent being 1 year ago and had been to [facility] for ATS a few months ago. Pt reports being on Sublocade through the [facility]. ATS bed search in [facility].
[2023-04-10 14:37] LABS: Appearance Urine Clear; Color Urine Dark Yellow; Glucose Urine UA Negative (Negative); Leukocyte Esterase Urine Negative (Negative); Nitrite Urine Negative (Negative); PH 5.5 (5.0-9.0); Specific Gravity - Urine 1.025 (1.005-1.025); UMIC TRIGGER UACC YES; Urine Blood Small (1+) (Negative); Urine Ketones 15 mg/dL (Negative); Urine Protein Trace mg/dL (Neg-Trace)
[2023-04-10 14:39] LABS: Bacteria Urine None Seen (None Seen); Hyaline Casts Urine 0-2 /LPF (0-2); Squamous Epithelial Cell Urine 0-2 /HPF (0-2); WBC Urine 0-5 /HPF (0-5)
[2023-04-10 14:41] LABS: Amphetamine Screen Urine Not Detected (Not Detect); Barbiturates, Urine Not Detected (Not Detect); Benzodiazepines Screen Urine Not Detected (Not Detect); Cannabinoid Screen Urine POSITIVE (Not Detect); Cocaine Screen Urine POSITIVE (Not Detect); Fentanyl, urine POSITIVE (Not Detect); Opiate Screen Urine POSITIVE (Not Detect); Phencyclidine Screen Urine Not Detected (Not Detect)
== END 2023-04-10 17:13 | disposition home or self-care (01) ==
PROVIDERS: Registered Nurse Emergency; Emergency Provider Emergency Medicine Emergency Medical Services
DX: F33.1 Major depressive disorder, recurrent, moderate (principal); R45.851 Suicidal ideations; R45.850 Homicidal ideations; F41.9 Anxiety disorder, unspecified; Z79.899 Other long term (current) drug therapy; Z11.52 Encounter for screening for COVID-19; Z20.822 Contact with and (suspected) exposure to COVID-19
CPT/HCPCS: 36415; 80053; 80143; 80179; 80307; 81001; 85025; 87635; 99284; 99285

== ENCOUNTER 2024-07-21 13:06 | Inpatient (IN) | payer OTHER, SELFPAY ==
--- NOTE | ~2024-07-21 | XR_ITS ---
EXAMINATION: XR HAND, RIGHT CLINICAL INFORMATION: pain, swelling COMPARISON: 10/31/2020. TECHNIQUE: PA, lateral, and oblique views of the right hand. FINDINGS: Normal bone mineralization. No fracture, dislocation, or suspicious bone lesion. There is normal alignment of the hand and wrist. No significant arthropathy present. No erosions. There is dorsal soft tissue swelling. XR/XR hand RT min 3V IMPRESSION: 1. No acute bony abnormalities. 2. Dorsal soft tissue swelling. Electronically signed by: Yoni Fisher MD 07/21/2024 02:24 PM [facility]
--- NOTE | 2024-07-21 13:17 | ED_ITS ---
HPI - Extremity Injury (Upper) General Chief Complaint: Extremity Injury, Lower Stated Complaint: r hand swelling inj Time Seen by Provider: 07/21/24 17:05 Source: patient, RN notes reviewed and old records reviewed Mode of arrival: ambulatory History of Present Illness ED Provider: Jane Pinzon PA-C HPI narrative: 43-year-old male with a past medical history of IVDA presenting to the ED complaining of right hand swelling, erythema, and increasing pain noted this morning. Admits injects cocaine and heroin into right forearm, denies injecting right anterior hand. Reports associated paresthesias & decreased ROM secondary to pain/swelling. Denies known fever, chills, injury Related Data Previous Rx's ?Medication ?Instructions ?Recorded cephalexin 500 mg capsule 500 mg PO QID 7 days #28 caps 08/13/20 doxycycline hyclate 100 mg capsule 100 mg PO BID 7 days #14 caps 08/13/20 cephalexin 500 mg capsule 500 mg PO Q6H 7 days #28 caps 10/31/20 doxycycline hyclate 100 mg tablet 100 mg PO BID #14 tabs 10/31/20 naproxen 500 mg tablet 500 mg PO BID PRN pain #20 tabs 10/31/20 Allergies Allergy/AdvReac Type Severity Reaction Status Date / Time No Known Allergies Allergy Verified 07/21/24 13:21 Review of Systems 2 Review of Systems: Yes all other systems are reviewed and are negative Constitutional: Constitutional: Reports as per [facility] Past Medical History Attestation statement: The following information was validated with the patient. Source: old records reviewed Medical History Drug abuse Social History Social History Alcohol intake: current Patient Tobacco Use Status: Never used Tobacco Substance Use Type: Heroin Advance Directives: No Advance Directives Information Provided: No Do you have a plan to hurt others: No Plan Physical Exam 2 Vital Signs: Vital Signs: Last Vital Signs Temp 98.4 F 07/21/24 17:08 Pulse 67 07/21/24 17:08 Resp 16 07/21/24 17:08 BP 130/73 07/21/24 17:08 Pulse Ox 97 07/21/24 17:08 O2 Del Method Room Air 07/21/24 17:08 BMI result Body Mass Index 22.7 Const: General: cooperative, healthy appearing and no acute distress O rientation/consciousness: patient oriented x3 Limitations: no limitations HEENT: Head: Yes normal to inspection and Yes atraumatic Ears: hearing grossly normal bilaterally General nose exam: Normal external nose present Face and sinus: Yes normal facial exam Eyes: General: appearance normal, both eyes and all related structures EOM: EOMs intact bilaterally Neck: Neck: Yes normal visual inspection and Yes no meningeal signs Resp: Effort & Inspection: normal respiratory effort and no respiratory distress Cardio: Rate: regular rate Skin: Rashes: no rashes Neuro: General: patient oriented x3, tone normal and no meningeal signs C ranial nerves: Yes CN's II-XII intact bilaterally Gait exam (Neuro): Normal gait present Extrem: Other: Please refer to images above. Right hand with appreciable swelling, erythema, warmth and diffuse tenderness.. Limited full flexion and extension secondary to pain. Neurovascularly intact. Course Course Course Narrative: This is an RME: Additional HPI, ROS, PE not included below will be deferred to primary provider. RME assessment and note performed by: Stephanie Jimenez PA-C This is a [id number]-male, with a hx of polysubstance use, PTSD, depression, anxiety, who presents to the ER with complaints of right hand pain and swelling since yesterday. He does admit to using heroin and cocaine, uses in his right AC. No abscess appreciated. Right dorsum of the hand is erythematous and edematous, decreased ROM secondary to pain and swelling. Plan: Labs, xray, further ER eval needed -1815--no leukocytosis. H/H stable. ESR 21. CRP 1.33 XR hand RT min 3V IMPRESSION: 1. No acute bony abnormalities. 2. Dorsal soft tissue swelling. > case discussed with orthopedic PA tomorrow recommended medicine admission with IV antibiotics and keep NPO after midnight Medications Administered Discontinued Medications Generic Name Dose Route Start Last Admin Trade Name Freq PRN Reason Stop Dose Admin Ceftriaxone Sodium 1 gm 07/21/24 18:09 07/21/24 18:35 Ceftriaxone Sodium 1 Gm Vial IVPUSH 07/21/24 18:10 1 gm ONCE ONE Administration Medical Decision Making Medical Decision Making MDM Narrative: 43-year-old male with a past medical history of IVDA presenting to the ED complaining of right hand swelling, erythema, and increasing pain noted this morning. On exam vital signs stable, NAD, nontoxic appearing, physical exam as noted above. Please refer to images. Concern for cellulitis and tenosynovitis. Lower suspicion for septic joint however on differential.. Lower suspicion for fracture. Lower suspicion for abscess Plan: Labs, blood cultures, x-ray, empiric IV antibiotics, orthopedic consult, anticipated admission Please refer to course for remaining clinical decision making, interpretation of labs/imaging results, and discussions with consultants and/or family members. Differential Diagnosis Differential Diagnoses: The differential diagnosis associated with the presentation includes As above Admission/Observation Consideration of admission/observation: Escalation of care including admission/observation considered Consult Healthcare Provider Management of the patient was discussed with: Hospitalist and [employer] (Orthopedics) Lab Data MDM Lab Attestation statement: I reviewed the patient's lab results. 07/21/24 14:39 07/21/24 14:39 Labs: Lab Results 07/21/24 Range/Units 14:39 WBC 7.8 (4.8-10.8) X10*3/uL RBC 4.26 L (4.60-5.80) X10*6/uL Hgb 11.9 L (14.0-18.0) g/dl Hct 36.3 L (42.0-52.0) % MCV 85.2 (80.0-98.0) fL MCH 27.9 (27.0-33.0) pg MCHC 32.8 (31.0-36.0) g/dl RDW 12.8 (11.0-16.0) % Plt Count 276 (160-400) X10*3/uL MPV 8.6 L (9.4-12.4) fL Immature Gran % (Auto) 0.1 (0.0-0.4) % Neut % (Auto) 65.3 (45-73) % Lymph % (Auto) 23.1 (20-40) % [place] % (Auto) 8.3 (2-11) % Eos % (Auto) 2.8 (0-4) % Baso % (Auto) 0.4 (0-2) % Lymph # (Auto) 1.8 (1.2-4.9) X10*3/uL [place] # (Auto) 0.7 (0.1-1.2) X10*3/uL Eos # (Auto) 0.2 (0.0-0.4) X10*3/uL Baso # (Auto) 0.0 (0.0-0.2) X10*3/uL Abs Immat Gran (auto) 0.01 (0.00-0.03) X10*3/uL Absolute Neuts (auto) 5.1 (2.0-8.3) x10*3/uL Absolute Nucleated RBC 0.000 (0.0-0.012) X10*3/uL Nucleated RBC % (auto) 0.0 (0.0-0.2) /100WBC ESR 21 H (0-15) MM/HR Sodium 139 (135-145) mmol/L Potassium 3.5 (3.3-5.1) mmol/L Chloride 105 (96-108) mmol/L Carbon Dioxide 29 (22-29) mmol/L Anion Gap 9 L (12-20) BUN 14 (9-16) mg/dL Creatinine 0.72 (0.5-1.4) mg/dL Estim Creat Clear Calc 127.9 Estimated GFR > 60 Random Glucose 134 H (60-115) mg/dL Calcium 9.1 (8.4-10.2) mg/dL Total Bilirubin 0.5 (0.0-1.0) mg/dL Direct Bilirubin 0.2 (0.0-0.5) mg/dL AST 31 (5-37) U/L ALT 15 (0-40) U/L Alkaline Phosphatase 73 (39-117) U/L C-Reactive Protein 1.33 H (< or = 0.50) mg/dL Total Protein 7.5 (6.5-8.0) g/dL Albumin 3.9 (3.5-5.0) g/dL Independent Interpretation I performed an independent interpretation of an: Plain X-Ray Radiology Impression Discussion of test interpretation with radiology: I have reviewed the radiologist's reading. External Record Review External record reviewed: Inpatient record, Office record, Outpatient record, Prior outpatient labs, Prior outpatient radiology, Primary care record and Outside ED record Tests considered The following testing was considered but not selected: As above Prescription Management I considered prescription management with: Pain Medication and Antibiotic Chronic Conditions Patient?s care impacted by: Other Social Determinants Patient?s care significantly limited by Social Determinants of Health including: Inadequate housing, Low income, Problems related to primary support group and Other Social Determinant of Health Critical Care Time Critical Care Time Critical Care Time: Yes Total Critical Care Time: 40 Attestation: I have personally provided critical care time exclusive of time spent on separately billable procedures. Time includes review of lab data, radiology results, discussion with consultants, and monitoring for potential decompensation. Intervention performed as documented. Discharge Plan Discharge Clinical Impression: Tenosynovitis, Cellulitis Patient Disposition: Admitted As Inpatient Print Language: [place]
[2024-07-21 13:18] VITALS: BP 117/60; PULSE 92; RESP 20; TEMP 36.6; O2SAT 96; BMI 22.7
[2024-07-21 14:48] LABS: MANUAL DIFF FLAG NO
[2024-07-21 14:50] LABS: Basophils Percent Auto 0.4 % (0-2); Eosinophils Absolute Auto 0.2 X10*3/uL (0.0-0.4); Eosinophils Percent Auto 2.8 % (0-4); Hematocrit 36.3 % (42.0-52.0); Hemoglobin 11.9 g/dl (14.0-18.0); Imm Gran Abs Auto 0.01 X10*3/uL (0.00-0.03); Imm Gran Pct Auto 0.1 % (0.0-0.4); Lymphocytes Absolute Auto 1.8 X10*3/uL (1.2-4.9); Lymphocytes Percent Auto 23.1 % (20-40); Mean Corpuscular HGB Conc 32.8 g/dl (31.0-36.0); Mean Corpuscular Hemoglobin 27.9 pg (27.0-33.0); Mean Corpuscular Volume 85.2 fL (80.0-98.0); Mean Platelet Volume 8.6 fL (9.4-12.4); Monocytes Absolute Auto 0.7 X10*3/uL (0.1-1.2); Monocytes Percent Auto 8.3 % (2-11); Neutrophils Absolute Auto 5.1 x10*3/uL (2.0-8.3); Neutrophils Percent Auto 65.3 % (45-73); Platelet Count 276 X10*3/uL (160-400); Red Blood Count 4.26 X10*6/uL (4.60-5.80); Red Cell Distribution Width 12.8 % (11.0-16.0); White Blood Count 7.8 X10*3/uL (4.8-10.8)
[2024-07-21 15:13] LABS: Alanine Aminotransferase 15 U/L (0-40); Albumin Level 3.9 g/dL (3.5-5.0); Alkaline Phosphatase 73 U/L (39-117); Anion Gap 9 (12-20); Aspartate Amino Transferase 31 U/L (5-37); Bilirubin Direct 0.2 mg/dL (0.0-0.5); Bilirubin Total 0.5 mg/dL (0.0-1.0); Blood Urea Nitrogen 14 mg/dL (9-16); C Reactive Protein 1.33 mg/dL (< or = 0.50); Calcium 9.1 mg/dL (8.4-10.2); Carbon Dioxide 29 mmol/L (22-29); Chloride 105 mmol/L (96-108); Creatinine Clr Calc Pharmacy 127.9; Estimated Glomerular Filt Rate > 60; Glucose Random 134 mg/dL (60-115); Potassium 3.5 mmol/L (3.3-5.1); Sodium 139 mmol/L (135-145); Total Protein 7.5 g/dL (6.5-8.0)
[2024-07-21 15:28] LABS: Erythrocyte Sedimentation Rate 21 MM/HR (0-15)
[2024-07-21 17:08] VITALS: BP 130/73; PULSE 67; RESP 16; TEMP 36.9; O2SAT 97
[2024-07-21] MEDS: cefTRIAXone sodium 1 GM VIAL IVPUSH (18:35)
--- NOTE | 2024-07-21 18:40 | PC.NURSE ---
18gIV placed in the left wrist - 2nd set of cultures obtained/sent to lab. abx administered per provider order. pending 2nd abx from pharmacy. will administer when able.
[2024-07-21] MEDS: vancomycin HCL 1,000 MG, vancomycin HCL 750 MG in 0.9 % Sodium Chloride 500 ML 267.5 MG IV (19:48)
[2024-07-21 19:50] VITALS: BP 125/64; PULSE 81; TEMP 36.9
--- NOTE | 2024-07-21 19:56 | PHA.MEDREC ---
Addendum entered by Rashid Mena RPh 07/21/24 20:02: Med rec was reviewed by [facility]. Original Note: Pharmacy Consult ? Medication Reconciliation Pharmacy has completed the medication reconciliation. Spoke to patient to confirm med list. Patient confirmed Sublocade 300 mg , last fill date 06/11/24. Patient states his last dose was 05/31/24.
--- NOTE | 2024-07-21 20:24 | P.HPHOSP_ITS ---
History of Present Illness Date of Service: 07/21/24 Chief Complaint: right hand pain and swelling 43M PMH polysubstance dependence, IV drug use, history of MRSA presented with right hand pain. Patient reports he woke up on day of presentation with right hand pain and swelling and erythema difficulty moving because of severe pain. Denies any fever or chills. Denies any drainage. Reports using hand for IV access. In ED no signs of sepsis. ESR and CRP only mildly elevated. Hand x- ray with no bony abnormalities did show dorsal soft tissue swelling. Review of Systems 2 Review of Systems: Yes all other systems are reviewed and are negative [facility] Medical History Drug abuse Social History Alcohol intake: current Patient Tobacco Use Status: Never used Tobacco Smoked in Last 30 Days: Yes Use of substances other than those prescribed or required for medical reasons: Yes Substance Use Type: Crack/Cocaine and Heroin Substance Use Frequency: Daily Advance Directives: No Advance Directives Information Provided: No Do you have a plan to hurt others: No Plan Meds Allergies Allergy/AdvReac Type Severity Reaction Status Date / Time No Known Allergies Allergy Verified 07/21/24 13:21 Active Medications: Current Medications Hydromorphone HCl (Hydromorphone Hcl 0.5 Mg/0.5 Ml Syringe) 0.5 mg IVPUSH Q3H PRN; Protocol PRN Reason: Pain, Severe (Pain Scale 7-10) Home Medications ?Medication ?Instructions ?Recorded ?Confirmed ?Last Taken ?Type buprenorphine 300 mg/1.5 mL 300 mg subcut Q28D 07/21/24 07/21/24 05/31/24 History solution,exten.rel.subcutaneous syringe (Sublocade) Physical Exam 2 Vital Signs and Narrative: Vital Signs: Last Vital Signs Temp 98.4 F 07/21/24 19:50 Pulse 81 07/21/24 19:50 Resp 16 07/21/24 17:08 BP 125/64 07/21/24 19:50 Pulse Ox 97 07/21/24 17:08 O2 Del Method Room Air 07/21/24 17:08 BMI result Body Mass Index 22.7 General: AO X 3, no acute distress Resp: CTA bilateral, no accessory muscles used CVS: S1,S2,RRR GI: soft, non tender, non distended Neuro: motor grossly intact, alert Psych: appropriate affect, appropriate insight Right hand erythema, swelling, decreased range of motion, tenderness Results Labs 07/21/24 14:39 07/21/24 14:39 Labs: Laboratory Results - last 24 hr 07/21/24 14:39 MCV 85.2 MCH 27.9 MCHC 32.8 RDW 12.8 Plt Count 276 MPV 8.6 L Immature Gran % (Auto) 0.1 Neut % (Auto) 65.3 Lymph % (Auto) 23.1 [place] % (Auto) 8.3 Eos % (Auto) 2.8 Baso % (Auto) 0.4 Lymph # (Auto) 1.8 [place] # (Auto) 0.7 Eos # (Auto) 0.2 Baso # (Auto) 0.0 Abs Immat Gran (auto) 0.01 Absolute Neuts (auto) 5.1 Absolute Nucleated RBC 0.000 Nucleated RBC % (auto) 0.0 ESR 21 H Anion Gap 9 L Estim Creat Clear Calc 127.9 Estimated GFR > 60 Random Glucose 134 H Calcium 9.1 Total Bilirubin 0.5 Direct Bilirubin 0.2 AST 31 ALT 15 Alkaline Phosphatase 73 C-Reactive Protein 1.33 H Total Protein 7.5 Albumin 3.9 Imaging Radiologist's Impressions: Impressions Hand X-Ray 07/21/24 13:21 IMPRESSION: 1. No acute bony abnormalities. 2. Dorsal soft tissue swelling. Electronically signed by: Yoni Fisher MD 07/21/2024 02:24 PM [facility] Assessment and Plan (1) Tenosynovitis: Status: Acute Plan 43M PMH polysubstance dependence, IV drug use, history of MRSA presented with right hand pain Right hand cellulitis and possible tenosynovitis due to IV drug use inpatient with history of MRSA Vancomycin and Zosyn Follow up cultures NPO after midnight for possible intervention, ortho eval Polysubstance dependence On Sublocade monthly DVT prophylaxis Lovenox Full Code Given significance of swelling and sensitivity area and history of MRSA requiring IV antibiotics and possible surgical intervention expected require at least 2 midnights inpatient Quality Stroke Does the patient have a stroke diagnosis?: No VTE Prior VTE?: No VTE Risk Level:: Medical - moderate - high VTE Device Contraindication: Treatment Not Indicated VTE Drug Contraindication: N/A - Med Ordered
[2024-07-21] MEDS: Piperacillin Sodium/Tazobactam 3.375 GM in 0.9 % Sodium Chloride 50 ML IV (21:43)
[2024-07-21] MEDS: HYDROmorphone HCl 0.5 MG/0.5 ML SYRINGE IVPUSH (21:44)
[2024-07-21] MEDS: Enoxaparin Sodium 40 MG/0.4 ML SYRINGE SUBCUT (21:44)
[2024-07-21 22:28] VITALS: BP 118/62; PULSE 78; RESP 17; TEMP 36.7; O2SAT 97
[2024-07-22] VITALS (7 sets, daily range): BP systolic 112–146; BP diastolic 58–83; PULSE 61–73; RESP 16–20; TEMP 36.3–37.1; O2SAT 96–98
--- NOTE | 2024-07-22 01:02 | MHC.EDTECH ---
This tech took over care of pt at 2300,rounded and introduced self to pt,vitals and belongings list completed,pt appears comfortable,call bustillos in reach
[2024-07-22] MEDS: HYDROmorphone HCl 0.5 MG/0.5 ML SYRINGE IVPUSH ×2 (02:19→19:38)
--- NOTE | 2024-07-22 02:23 | MHC.EDTECH ---
Urine sample collected and sent to lab
[2024-07-22 02:37] LABS: Amphetamine Screen Urine Not Detected (Not Detect); Barbiturates, Urine Not Detected (Not Detect); Benzodiazepines Screen Urine Not Detected (Not Detect); Buprenorphine Scr Positive (Not Detect); Cannabinoid Screen Urine Not Detected (Not Detect); Cocaine Screen Urine POSITIVE (Not Detect); Fentanyl, urine POSITIVE (Not Detect); Methadone Screen, Urine Not Detected (Not Detect); Opiate Screen Urine POSITIVE (Not Detect); Oxycodone Screen Urine Not Detected (Not Detect); Phencyclidine Screen Urine Not Detected (Not Detect)
[2024-07-22] MEDS: Piperacillin Sodium/Tazobactam 3.375 GM in 0.9 % Sodium Chloride 50 ML IV ×4 (02:59→20:38)
--- NOTE | 2024-07-22 03:10 | PC.NURSE ---
2219 zosyn IV infusion given late due to vanco infusion runnning at the same time and patient only having single IV access site.
--- NOTE | 2024-07-22 05:31 | MHC.EDTECH ---
Labs drawn and sent to lab
[2024-07-22 05:59] LABS: Hematocrit 36.5 % (42.0-52.0); Hemoglobin 12.2 g/dl (14.0-18.0); Mean Corpuscular HGB Conc 33.4 g/dl (31.0-36.0); Mean Corpuscular Hemoglobin 28.8 pg (27.0-33.0); Mean Corpuscular Volume 86.3 fL (80.0-98.0); Mean Platelet Volume 9.1 fL (9.4-12.4); Platelet Count 276 X10*3/uL (160-400); Red Blood Count 4.23 X10*6/uL (4.60-5.80); White Blood Count 6.8 X10*3/uL (4.8-10.8)
[2024-07-22 06:12] LABS: Anion Gap 10 (12-20); Blood Urea Nitrogen 10 mg/dL (9-16); Calcium 8.9 mg/dL (8.4-10.2); Carbon Dioxide 24 mmol/L (22-29); Chloride 108 mmol/L (96-108); Creatinine Clr Calc Pharmacy 143.9; Estimated Glomerular Filt Rate > 60; Glucose Random 104 mg/dL (60-115); Potassium 3.9 mmol/L (3.3-5.1); Sodium 138 mmol/L (135-145)
--- NOTE | 2024-07-22 08:20 | PM.CNOR ---
History of Present Illness HPI Consult date: 07/22/24 Chief complaint: r hand cellulitus/ tenosynovitis Narrative: Patient is a 43-year-old male who is admitted to the hospital for evaluation and treatment of right hand cellulitis and potential tenosynovitis Patient reports that he noticed pain and swelling in his right hand yesterday, and has gradually worsened to the point where it was at today. The patient states that he has pain with the extremes of range of motion of his right hand. Of note, patient does have a history significant for IVDU and has injected into the hand recently. Denies numbness or tingling in the right hand. No other acute complaints or concerns at this time. Review of Systems Review of Systems: Yes all other systems are reviewed and are negative PMFSH Past Medical History Medical History Drug abuse Social History Social History Alcohol intake: current Patient Tobacco Use Status: Never used Tobacco Smoked in Last 30 Days: Yes Use of substances other than those prescribed or required for medical reasons: Yes Substance Use Type: Crack/Cocaine and Heroin Substance Use Frequency: Daily Advance Directives: No Advance Directives Information Provided: No Do you have a plan to hurt others: No Plan Nutrition Risks: No Nutritional Risk Meds Allergies Allergy/AdvReac Type Severity Reaction Status Date / Time No Known Allergies Allergy Verified 07/21/24 13:21 Active Medications: Current Medications Acetaminophen (Acetaminophen 325 Mg Tablet) 650 mg PO Q6H PRN PRN Reason: Pain, Mild 1-3,fever,headache Calcium Carbonate (Calcium Carbonate 750 Mg Tab.Chew) 750 mg PO Q4H PRN PRN Reason: Heartburn Enoxaparin Sodium (Enoxaparin Sodium 40 Mg/0.4 Ml Syringe) 40 mg SUBCUT Q24H KATERINE Last Admin: 07/21/24 21:44 Dose: 40 mg Hydromorphone HCl (Hydromorphone Hcl 0.5 Mg/0.5 Ml Syringe) 0.5 mg IVPUSH Q3H PRN; Protocol PRN Reason: Pain, Severe (Pain Scale 7-10) Last Admin: 07/22/24 02:19 Dose: 0.5 mg Vancomycin HCl 1,000 mg/ (Sodium Chloride) 270 mls @ 270 mls/hr IV Q12H [facility] Piperacillin Sod/Tazobactam (Sod 3.375 gm/ Sodium Chloride) 50 mls @ 100 mls/hr IV Q6H [facility] Last Infusion: 07/22/24 03:32 Dose: Infused Magnesium Hydroxide (Milk Of Magnesia 30 Ml Oral.Susp) 30 ml PO DAILY PRN PRN Reason: Constipation Melatonin (Melatonin 3 Mg Tablet) 6 mg PO BEDTIME PRN PRN Reason: Insomnia Pharmacy Consult (Consult Rx Vancomycin Dosing) 1 each MISCELLANE DAILY PRN PRN Reason: Consult order Sodium Chloride (0.9 % Sodium Chloride Flush 3 Ml Syringe) 3 ml IVFLUSH QSHIFT [facility] Last Admin: 07/22/24 02:05 Dose: Not Given Home Medications ?Medication ?Instructions ?Recorded ?Confirmed ?Last Taken ?Type buprenorphine 300 mg/1.5 mL 300 mg subcut Q28D 07/21/24 07/21/24 05/31/24 History solution,exten.rel.subcutaneous syringe (Sublocade) Physical Exam Vital Signs: Vital Signs: Last Vital Signs Temp 98.3 F 07/22/24 05:19 Pulse 67 07/22/24 05:19 Resp 16 07/22/24 05:19 BP 120/75 07/22/24 05:19 Pulse Ox 96 07/22/24 05:19 O2 Del Method Room Air 07/22/24 05:19 BMI result Body Mass Index 22.7 Extrem: Other: Patient is alert, oriented, and in no acute distress. Neuro: Normal sensation of the tips of all digits of the right hand at this time Vascular: Cap refill brisk Pain: Patient reports minimal tenderness to palpation about the dorsal aspect of the right hand at the level of the swelling ROM: Patient was able to extend all digits of the right hand fully Patient was able to get close to making a closed fist with encouragement, with some discomfort at the extremes of the range of motion Skin: No lacerations or abrasions. General: No ecchymosis, erythema, or evidence of infection. Psych: Appears grossly normal Affect normal Attitude cooperative Results Labs 07/22/24 05:30 07/22/24 05:30 Labs: Abnormal lab results 07/21/24 07/22/24 07/22/24 Range/Units 14:39 02:20 05:30 RBC 4.26 L 4.23 L (4.60-5.80) X10*6/uL Hgb 11.9 L 12.2 L (14.0-18.0) g/dl Hct 36.3 L 36.5 L (42.0-52.0) % MPV 8.6 L 9.1 L (9.4-12.4) fL ESR 21 H (0-15) MM/HR Anion Gap 9 L 10 L (12-20) Random Glucose 134 H (60-115) mg/dL C-Reactive Protein 1.33 H (< or = 0.50) mg/dL Urine Opiates Screen POSITIVE H (Not Detect) Ur Buprenorphine Scrn Positive H (Not Detect) ng/mL Urine Fentanyl Screen POSITIVE H (Not Detect) Urine Cocaine Screen POSITIVE H (Not Detect) H & H 07/21/24 07/22/24 Range/Units 14:39 05:30 Hgb 11.9 L 12.2 L (14.0-18.0) g/dl Hct 36.3 L 36.5 L (42.0-52.0) % All other labs normal. Assessment and Plan (1) Cellulitis: Status: Acute Plan 1. Swelling and cellulitis of right hand concerning for potential abscess Ongoing for at least 1 day I educated the patient about the condition. I discussed both operative and nonoperative treatment options. The patient would like to proceed with surgery. The risks and benefits of operative treatment were discussed with the patient and the patient wishes to proceed with surgery. These risks include, but are not limited to, risk of damage to blood vessels, nerves, tendons, infection, recurrence, incomplete relief of preoperative symptoms, persistent pain, possible need for further surgery, and the risks associated with regional blocks and/or anesthesia. Plan is to take the patient to the operating room at some point tomorrow for the following procedures: 1. I and D of right hand and in general anesthesia All of the preoperative paperwork including the consent was discussed today. All of the patient's questions were answered in the clinic today. The patient understands that they will be in contact with our surgical tech to discuss scheduling their procedure. Of note, this patient does not have a definitive need for surgery, so he will be reassessed either later today or tomorrow to decide if there is a definitive need for surgery. Patient denies diabetes, blood thinners, asthma, heart issues, lung issues, kidney issues, or current smoking. Procedures Date of Service Date of Service: 07/22/24
[2024-07-22] MEDS: vancomycin HCL 1,000 MG in 0.9 % Sodium Chloride 250 ML 270 MG IV ×2 (08:22→19:27)
[2024-07-22] MEDS: 0.9 % Sodium Chloride Flush 3 ML SYRINGE IVFLUSH ×3 (08:22→20:38)
--- NOTE | 2024-07-22 10:14 | PC.NURSE ---
patient currently sleeping, rr equal/non labored, IV abx running per order, plan of care ongoing
--- NOTE | 2024-07-22 11:36 | HO.PM.IMPN ---
Subjective Subjective Date of Service: 07/22/24 Interval History: left hand swelling and pain, he says little better than yesterday Physical Exam Vital Signs: Vital Signs: Last Vital Signs Temp 98.2 F 07/22/24 08:54 Pulse 61 07/22/24 08:54 Resp 18 07/22/24 08:54 BP 130/83 07/22/24 08:54 Pulse Ox 97 07/22/24 08:54 O2 Del Method Room Air 07/22/24 08:54 BMI result Body Mass Index 22.7 General: AO X 3, no acute distress Resp: CTA bilateral CVS: S1,S2,RRR GI: +BS, NT, no distention Skin: see elsewhere Neuro: motor grossly intact Psych: appropriate affect Extrem: Other: Patient is alert, oriented, and in no acute distress. Neuro: Normal sensation of the tips of all digits of the right hand at this time Vascular: Cap refill brisk Pain: Patient reports minimal tenderness to palpation about the dorsal aspect of the right hand at the level of the swelling ROM: Patient was able to extend all digits of the right hand fully Patient was able to get close to making a closed fist with encouragement, with some discomfort at the extremes of the range of motion Skin: No lacerations or abrasions. General: No ecchymosis, erythema, or evidence of infection. Psych: Appears grossly normal Affect normal Attitude cooperative Objective Data Active Medications Acetaminophen (Acetaminophen 325 Mg Tablet) 650 mg PO Q6H PRN PRN Reason: Pain, Mild 1-3,fever,headache Calcium Carbonate (Calcium Carbonate 750 Mg Tab.Chew) 750 mg PO Q4H PRN PRN Reason: Heartburn Enoxaparin Sodium (Enoxaparin Sodium 40 Mg/0.4 Ml Syringe) 40 mg SUBCUT Q24H [facility] Last Admin: 07/21/24 21:44 Dose: 40 mg Documented By: MONTSERRAT Hydromorphone HCl (Hydromorphone Hcl 0.5 Mg/0.5 Ml Syringe) 0.5 mg IVPUSH Q3H PRN; Protocol PRN Reason: Pain, Severe (Pain Scale 7-10) Last Admin: 07/22/24 02:19 Dose: 0.5 mg Documented By: MONTSERRAT Vancomycin HCl 1,000 mg/ (Sodium Chloride) 270 mls @ 270 mls/hr IV Q12H [facility] Last Infusion: 07/22/24 09:22 Dose: Infused Documented By: IRAM Piperacillin Sod/Tazobactam (Sod 3.375 gm/ Sodium Chloride) 50 mls @ 100 mls/hr IV Q6H [facility] Last Admin: 07/22/24 09:53 Dose: 100 mls/hr Documented By: IRAM Magnesium Hydroxide (Milk Of Magnesia 30 Ml Oral.Susp) 30 ml PO DAILY PRN PRN Reason: Constipation Melatonin (Melatonin 3 Mg Tablet) 6 mg PO BEDTIME PRN PRN Reason: Insomnia Pharmacy Consult (Consult Rx Vancomycin Dosing) 1 each MISCELLANE DAILY PRN PRN Reason: Consult order Sodium Chloride (0.9 % Sodium Chloride Flush 3 Ml Syringe) 3 ml IVFLUSH QSHIFT [facility] Last Admin: 07/22/24 08:22 Dose: 3 ml Documented By: BRISSA Labs 07/22/24 05:30 07/22/24 05:30 Labs: Laboratory Results - last 24 hr 07/21/24 07/22/24 07/22/24 14:39 02:20 05:30 MCV 85.2 86.3 MCH 27.9 28.8 MCHC 32.8 33.4 RDW 12.8 13.0 Plt Count 276 276 MPV 8.6 L 9.1 L Immature Gran % (Auto) 0.1 Neut % (Auto) 65.3 Lymph % (Auto) 23.1 Piatt % (Auto) 8.3 Eos % (Auto) 2.8 Baso % (Auto) 0.4 Lymph # (Auto) 1.8 Piatt # (Auto) 0.7 Eos # (Auto) 0.2 Baso # (Auto) 0.0 Abs Immat Gran (auto) 0.01 Absolute Neuts (auto) 5.1 Absolute Nucleated RBC 0.000 0.000 Nucleated RBC % (auto) 0.0 0.0 ESR 21 H Anion Gap 9 L 10 L Estim Creat Clear Calc 127.9 143.9 Estimated GFR > 60 > 60 Random Glucose 134 H 104 Calcium 9.1 8.9 Total Bilirubin 0.5 Direct Bilirubin 0.2 AST 31 ALT 15 Alkaline Phosphatase 73 C-Reactive Protein 1.33 H Total Protein 7.5 Albumin 3.9 Urine Opiates Screen POSITIVE H Ur Buprenorphine Scrn Positive H Ur Oxycodone Screen Not Detected Urine Methadone Screen Not Detected Urine Fentanyl Screen POSITIVE H Ur Barbiturates Screen Not Detected Ur Phencyclidine Scrn Not Detected Ur Amphetamines Screen Not Detected U Benzodiazepines Scrn Not Detected Urine Cocaine Screen POSITIVE H U Marijuana (THC) Screen Not Detected Assessment and Plan (1) Cellulitis: Status: Acute (2) Tenosynovitis: Status: Acute Plan 43M PMH polysubstance dependence, IV drug use, history of MRSA presented with right hand pain Right hand cellulitis and possible tenosynovitis due to IV drug use inpatient with history of MRSA Vancomycin and Zosyn, monitor vanco level Ortho planing operative exploration tomorrow in OR Follow up cultures NPO after midnight for possible intervention, Polysubstance dependence--positive for opioid, cocaine, fentanyl and buprenorph) On Sublocade monthly addiction med consult DVT prophylaxis Lovenox Full Code Given significance of swelling and sensitivity area and history of MRSA requiring IV antibiotics and possible surgical intervention expected require inpatient care Quality Stroke Does the patient have a stroke diagnosis?: No VTE Prior VTE?: No VTE Risk Level:: Medical - moderate - high VTE Device Contraindication: Treatment Not Indicated VTE Drug Contraindication: N/A - Med Ordered
--- NOTE | 2024-07-22 11:44 | MHC.CM.PN ---
CM met with Patient at bedside, in the ED. Patient is homeless, has no PCP(PCP brochure to be provided), and declined the completion of a HCP. Patient obtains his Suboxone from [facility] in [place]. dc plan is TBD (? LT IVABT after surgery); CM has initiated and will follow for dc planning. Patient will need assist with transport at dc.
[2024-07-22 18:49] LABS: Vancomycin Random 9.6 mcg/mL (15-20)
--- NOTE | 2024-07-22 19:00 | HE.PHANOTE ---
Re: Lisao Pt's renal function is improving. Trough returned at 9.6. DOse increased to 1000mg q8h with predicted AUC 533, predicted trough 15.1. Next trough 07/23 @ 1800.
[2024-07-23] MEDS: Piperacillin Sodium/Tazobactam 3.375 GM in 0.9 % Sodium Chloride 50 ML IV ×4 (02:50→20:21)
[2024-07-23] MEDS: vancomycin HCL 1,000 MG in 0.9 % Sodium Chloride 250 ML 270 MG IV ×3 (03:22→20:54)
[2024-07-23 04:00] VITALS: BP 128/77; PULSE 61; RESP 18; TEMP 36.9; O2SAT 98
[2024-07-23 06:17] LABS: Creatinine Clr Calc Pharmacy 139.5; Estimated Glomerular Filt Rate > 60
--- NOTE | 2024-07-23 07:22 | HO.PM.IMPN ---
Subjective Subjective Date of Service: 07/23/24 Interval History: pain, redness and swelling better Physical Exam Vital Signs: Vital Signs: Last Vital Signs Temp 98.5 F 07/23/24 04:00 Pulse 61 07/23/24 04:00 Resp 18 07/23/24 04:00 BP 128/77 07/23/24 04:00 Pulse Ox 98 07/23/24 04:00 O2 Del Method Room Air 07/23/24 04:00 BMI result Body Mass Index 22.7 Const: Other: General: AO X 3, no acute distress Resp: CTA bilateral CVS: S1,S2,RRR GI: +BS, NT, no distention Skin: No rash Neuro: motor grossly intact Psych: appropriate affect Objective Data Active Medications Acetaminophen (Acetaminophen 325 Mg Tablet) 650 mg PO Q6H PRN PRN Reason: Pain, Mild 1-3,fever,headache Calcium Carbonate (Calcium Carbonate 750 Mg Tab.Chew) 750 mg PO Q4H PRN PRN Reason: Heartburn Enoxaparin Sodium (Enoxaparin Sodium 40 Mg/0.4 Ml Syringe) 40 mg SUBCUT Q24H [facility] Last Admin: 07/22/24 20:34 Dose: Not Given Documented By: ALEX Non-Admin Reason: procedure tomorrow Hydromorphone HCl (Hydromorphone Hcl 0.5 Mg/0.5 Ml Syringe) 0.5 mg IVPUSH Q3H PRN; Protocol PRN Reason: Pain, Severe (Pain Scale 7-10) Last Admin: 07/22/24 19:38 Dose: 0.5 mg Documented By: ALEX Piperacillin Sod/Tazobactam (Sod 3.375 gm/ Sodium Chloride) 50 mls @ 100 mls/hr IV Q6H [facility] Last Infusion: 07/23/24 03:24 Dose: Infused Documented By: ALEX Vancomycin HCl 1,000 mg/ (Sodium Chloride) 270 mls @ 270 mls/hr IV Q8H [facility] Last Infusion: 07/23/24 04:25 Dose: Infused Documented By: ALEX Magnesium Hydroxide (Milk Of Magnesia 30 Ml Oral.Susp) 30 ml PO DAILY PRN PRN Reason: Constipation Melatonin (Melatonin 3 Mg Tablet) 6 mg PO BEDTIME PRN PRN Reason: Insomnia Pharmacy Consult (Consult Rx Vancomycin Dosing) 1 each MISCELLANE DAILY PRN PRN Reason: Consult order Sodium Chloride (0.9 % Sodium Chloride Flush 3 Ml Syringe) 3 ml IVFLUSH QSHIFT [facility] Last Admin: 07/22/24 20:38 Dose: 3 ml Documented By: ALEX Labs 07/22/24 05:30 07/23/24 05:34 Labs: Laboratory Results - last 24 hr 07/22/24 07/23/24 18:09 05:34 Hold Purple Top SEE NOTE Estim Creat Clear Calc 139.5 Estimated GFR > 60 Random Vancomycin 9.6 L Microbiology Microbiology Results: Microbiology 07/21/24 18:25 Blood Culture - Preliminary Blood - Venous No growth after 24 hours. 07/21/24 14:39 Blood Culture - Preliminary Blood - Venous No growth after 24 hours. Assessment and Plan (1) Cellulitis: Status: Acute (2) Tenosynovitis: Status: Acute Plan 43M PMH polysubstance dependence, IV drug use, history of MRSA presented with right hand pain Right hand cellulitis and possible tenosynovitis due to IV drug use inpatient with history of MRSA Vancomycin and Zosyn, monitor vanco level Ortho following for possible surgery if worsening Cultures so far negative NPO for now Polysubstance dependence--positive for opioid, cocaine, fentanyl and buprenorph) On Sublocade monthly addiction med consult DVT prophylaxis Lovenox Full Code Given significance of swelling and sensitivity area and history of MRSA requiring IV antibiotics and possible surgical intervention expected require inpatient care Quality Stroke Does the patient have a stroke diagnosis?: No VTE Prior VTE?: No VTE Risk Level:: Medical - moderate - high VTE Device Contraindication: Treatment Not Indicated VTE Drug Contraindication: N/A - Med Ordered
[2024-07-23 07:24] VITALS: BP 119/70; PULSE 67; RESP 18; TEMP 37.3; O2SAT 99
--- NOTE | 2024-07-23 07:37 | PM.PNORT ---
Subjective Subjective Date of Service: 07/23/24 Interval history: 43-year-old male admitted to the hospital for cellulitis and edema of the right hand Today, patient reports his symptoms have improved Patient reports no ongoing redness Reports improvements and swelling Patient reports he is able to make a closed fist this time Denies numbness or tingling Other acute complaints or concerns at this time Physical Exam Vital Signs: Vital Signs: Last Vital Signs Temp 99.2 F 07/23/24 07:24 Pulse 67 07/23/24 07:24 Resp 18 07/23/24 07:24 BP 119/70 07/23/24 07:24 Pulse Ox 99 07/23/24 07:24 O2 Del Method Room Air 07/23/24 07:24 BMI result Body Mass Index 22.7 Extrem: Other: Patient is alert, oriented, and in no acute distress. Neuro: Normal sensation of the tips of all digits of the right hand at this time Vascular: Cap refill brisk Pain: Patient reports no tenderness to palpation about the dorsal aspect of the right hand at the level of the swelling ROM: Patient was able to extend all digits of the right hand fully Patient was able to make a closed fist without difficulty Skin: No lacerations or abrasions. General: Edema improved previous evaluation No ongoing erythema noted at this time Edema soft Psych: Appears grossly normal Affect normal Attitude cooperative Procedures Date of Service Date of Service: 07/23/24 Progress Note: A&P Assessment and plan (1) Cellulitis: Status: Acute Plan 1. Cellulitis of right hand Improving with IV antibiotics After discussion with Dr. Plascencia, it was decided that surgical intervention is not necessary on this patient this time, as there is no evidence of abscess or other acute surgical indication Patient should continue with IV antibiotics to improve his cellulitis and edema OT ordered while patient was in house to work on range of motion of the right hand Continue with all other recommendations per Medicine NPO order for today removed, no further NPO status indicated at this time Time Spent With Patient Time: Total time managing care of this patient today ____ minutes. Quality Stroke Does the patient have a stroke diagnosis?: No VTE Prior VTE?: No VTE Risk Level:: Medical - moderate - high VTE Device Contraindication: Treatment Not Indicated VTE Drug Contraindication: N/A - Med Ordered
[2024-07-23] MEDS: 0.9 % Sodium Chloride Flush 3 ML SYRINGE IVFLUSH ×3 (08:42→20:21)
[2024-07-23] MEDS: HYDROmorphone HCl 0.5 MG/0.5 ML SYRINGE IVPUSH (08:46)
--- NOTE | 2024-07-23 12:34 | MHC.CM.PN ---
PER MD ROUNDS, PT WILL LIKELY BE READY TO DC TOMORROW ON PO ABX PT REPORTS HE WILL BE STAYING WITH FRIENDS IN [place] UPON DC HE WILL NEED SHUTTLE TRANSPORT TO [address] [place] [address] [place]
[2024-07-23 16:00] VITALS: BP 112/67; PULSE 65; RESP 16; TEMP 36.8; O2SAT 97
[2024-07-23 19:44] VITALS: BP 128/68; PULSE 62; RESP 20; TEMP 37.1; O2SAT 97
[2024-07-23] MEDS: Enoxaparin Sodium 40 MG/0.4 ML SYRINGE SUBCUT (20:21)
[2024-07-23 20:26] LABS: Vancomycin Trough 15.3 mcg/mL (10.0-20.0)
[2024-07-24] MEDS: Piperacillin Sodium/Tazobactam 3.375 GM in 0.9 % Sodium Chloride 50 ML IV (02:34)
[2024-07-24 02:38] VITALS: BP 122/60; PULSE 58; RESP 18; TEMP 36.2; O2SAT 98
[2024-07-24] MEDS: vancomycin HCL 1,000 MG in 0.9 % Sodium Chloride 250 ML 270 MG IV (03:06)
[2024-07-24 06:45] LABS: Creatinine Clr Calc Pharmacy 133.4; Estimated Glomerular Filt Rate > 60
[2024-07-24 07:14] VITALS: BP 111/65; PULSE 67; RESP 18; TEMP 36.4; O2SAT 97
--- NOTE | 2024-07-24 08:31 | P.DS_ITS ---
DS: Providers Provider Date of Service: 07/24/24 Date of admission: 07/21/24 20:23 Date of discharge: 07/24/24 Primary care physician: None Physician Consults: 07/21/24 20:21 Consult to Orthopedics Routine Consulting Provider: [facility] Reason for consultation: right hand pain and swelling, IVDA DS: Diagnosis Discharge Diagnosis (1) Cellulitis: Status: Acute DS: Summary Hospital Course Hospital Course: A 43-year-old male with a history of polysubstance dependence, IV drug use, and previous MRSA infection presented with right hand pain, swelling, and erythema, with difficulty moving the hand due to severe pain. He denied fever, chills, or drainage. Imaging showed dorsal soft tissue swelling but no bony abnormalities. Hospital Course: The patient was admitted and treated with IV vancomycin and Zosyn. Orthopedics evaluated for possible tenosynovitis, which was ruled out. His cellulitis improved without the need for surgical intervention, and cultures remained negative. With full range of motion restored and no remaining erythema, he will be transitioned to oral doxycycline and Augmentin for a total of seven days of treatment. Addiction team counseled and gave him resources to help with abstinence from substance use Time Attestation Discharge Coordination Time (in mins): 30 Quality: Safe Use of Opioids Does Pt have an Active Cancer Diagnosis on the Problem List?: No Quality: Stroke Does the patient have a stroke diagnosis?: No Physical Exam 2 Vital Signs: Vital Signs: Last Vital Signs Temp 97.6 F 07/24/24 07:14 Pulse 67 07/24/24 07:14 Resp 18 07/24/24 07:14 BP 111/65 07/24/24 07:14 Pulse Ox 97 07/24/24 07:14 O2 Del Method Room Air 07/24/24 07:14 BMI result Body Mass Index 22.7 Const: Other: General: AO X 3, no acute distress Resp: CTA bilateral CVS: S1,S2,RRR GI: +BS, NT, no distention Skin: No rash Neuro: motor grossly intact Psych: appropriate affect DS: Data Data Completed and Pending Labs on day of discharge: Laboratory Results - last 24 hr 07/23/24 07/24/24 18:10 05:51 Hold Purple Top SEE NOTE Creatinine 0.69 Estim Creat Clear Calc 133.4 Estimated GFR > 60 Vancomycin Trough 15.3 Preliminary micro results at discharge 07/21/24 18:25 Blood Culture - Preliminary Blood - Venous No growth after 48 hours. 07/21/24 14:39 Blood Culture - Preliminary Blood - Venous No growth after 48 hours. Discharge Plan Discharge Anticipated Discharge Date/Time: 07/24/24 08:32 Patient Disposition: Home, Self-Care Discharge Diagnosis: Right hand cellulitis Referrals: Physician,None [Primary Care Provider] - 1 Week Discharge Medications: New amoxicillin-pot clavulanate 875-125 mg Tablet 1 tab PO Q12H Qty: 9 0RF doxycycline monohydrate 100 mg Capsule 100 mg PO Q12H Qty: 9 0RF Continued Sublocade 300 mg/1.5 mL solution, extended rel syringe 300 mg SUBCUT Q28D Discharge Orders: Discharge Order (Routine); Ordered 07/24/24 Ordered By: Hernan John Diet: Advance to usual diet Activity on Discharge: As tolerated Stand Alone Forms: Patient Portal Discharge page Print Language: Djiboutian Care Plan Goals: recovery from hand cellulitis Health Concerns: hand cellulitis Plan of Treatment: take Augmentin and Doxycyline as recommended and follow up with your doctor in a week also instructed to avoid ilicit substance use Assessment: see above
--- NOTE | 2024-07-24 08:56 | MHC.CM.PN ---
pt dcd home self care
[2024-07-24] MEDS: 0.9 % Sodium Chloride Flush 3 ML SYRINGE IVFLUSH (09:17)
[2024-07-24] MEDS: Amoxicillin/Potassium Clav 875 MG TABLET PO (09:17)
[2024-07-24] MEDS: Doxycycline Monohydrate 100 MG CAPSULE PO (09:17)
== END 2024-07-24 10:08 | disposition home or self-care (01) | DRG 383 ==
LOC: HO.ED 18:20 → HO.EDOVER 20:29 → HO.S3 07-22 12:50
PROVIDERS: Physician Assistant; Physician Assistant Medical; Admitting Provider Internal Medicine; Emergency Provider Emergency Medicine; Visit Provider Internal Medicine
DX: L03.113 Cellulitis of right upper limb (principal); F11.20 Opioid dependence, uncomplicated; F17.210 Nicotine dependence, cigarettes, uncomplicated; F19.20 Other psychoactive substance dependence, uncomplicated; Z71.6 Tobacco abuse counseling; Z86.14 Personal history of Methicillin resistant Staphylococcus aureus infection
CPT/HCPCS: 36415; 73130; 80048; 80076; 80202; 80307; 82565; 85025; 85027; 85652; 86140; 87040; 99221; 99285; J0696; J1171; J1650; J2543; J3370; S9485

== ENCOUNTER → 2024-07-21 13:21 | Outpatient (BNV) | payer OTHER, SELFPAY | PROVIDERS: Visit Provider Radiology Diagnostic Radiology | DX: M79.641 Pain in right hand (principal); R22.31 Localized swelling, mass and lump, right upper limb | CPT/HCPCS: 73130 ==

== ENCOUNTER → 2024-07-21 17:07 | Outpatient (BNV) | payer OTHER, SELFPAY | PROVIDERS: Emergency Provider Emergency Medicine; Visit Provider Internal Medicine | DX: L03.90 Cellulitis, unspecified (principal); M65.90 Unspecified synovitis and tenosynovitis, unspecified site | CPT/HCPCS: 99232; 99233 ==

== ENCOUNTER → 2024-07-21 20:23 | Outpatient (BNV) | payer OTHER, SELFPAY | PROVIDERS: Admitting Provider Internal Medicine; Emergency Provider Emergency Medicine | DX: L03.90 Cellulitis, unspecified (principal) | CPT/HCPCS: 99223 ==